=== PATIENT | male | born 1965 | race African-American/Black ===

== ENCOUNTER 2020-02-20 14:13 | Emergency (ER) | payer MEDICARE, MEDICAID ==
[~2020-02-20] VITALS: Ht 183.5 cm; Wt 102.1 kg
--- NOTE | 2020-02-20 14:15 | NUR ---
ED Nurse Note: Patient was BIBA from home due to gen wakness, and abnormal labs. Per manager social responsibility BS was criticaly high. Patient presented calm, and cooperative, has even non labored breathing, AAO x4, BS critically high at bed side, other VSS at this time.
--- NOTE | 2020-02-20 14:18 | NUR ---
ED Nurse Note: IV line was established on left forearm, blood and urine collected sent to lab
[2020-02-20 14:20] VITALS: BP 136/74
--- NOTE | 2020-02-20 14:40 | Emergency Room Report ---
History of Present Illness General Chief Complaint: Abnormal Labs Present Illness HPI 55-year-old male with history of type 2 diabetes not on insulin, remote history of kidney transplant approximately 20 years ago on tacrolimus, here with generalized weakness. Patient says that over the past several days to weeks he has been feeling generally weak. He does not check his blood glucose at home. When paramedics arrived the patient's blood glucose reading was "high." Patient says he only feels generally weak. Denies any pain. Denies fevers, chills, chest pain, palpitations, shortness of breath, cough, back pain, abdominal pain, nausea, vomiting, diarrhea, dysuria. No known sick contacts. Allergies: Coded Allergies: SULFA (SULFONAMIDE ANTIBIOTICS) (Unverified Allergy, Unknown, 02/20/20) COVID-19 Screening Contact w/high risk pt: No Experienced COVID-19 symptoms?: No COVID-19 Testing performed SPANISH MEDICAL INTERPRETER: No Nursing Documentation-PMH Hx Hypertension: Yes Hx Diabetes: Yes Review of Systems All Other Systems: negative except mentioned in HPI Physical Exam Vital Signs Date Time Temp Pulse Resp B/P (MAP) Pulse Ox O2 Delivery O2 Flow Rate FiO2 02/20/20 14:07 97.9 83 20 136/74 (94) 98 Room Air Sp02 EP Interpretation: reviewed, normal General Appearance: no apparent distress, alert, GCS 15, non-toxic Head: normocephalic, atraumatic Eyes: bilateral eye normal inspection, bilateral eye PERRL ENT: hearing grossly normal, normal pharynx, no angioedema, normal voice Neck: full range of motion, supple/symm/no masses Respiratory: chest non-tender, lungs clear, normal breath sounds, speaking full sentences Cardiovascular #1: regular rate, rhythm, no edema Cardiovascular #2: 2+ carotid (R), 2+ carotid (L), 2+ radial (R), 2+ radial (L), 2+ dorsalis pedis (R), 2+ dorsalis pedis (L) Gastrointestinal: normal bowel sounds, non tender, soft, non-distended, no guarding, no rebound Rectal: deferred Genitourinary: normal inspection, no CVA tenderness Musculoskeletal: back normal, normal range of motion, calf tenderness, gait/station normal, non-tender Neurologic: alert, motor strength/tone normal, oriented x3, sensory intact, responsive, speech normal Psychiatric: judgement/insight normal, memory normal, mood/affect normal, no suicidal/homicidal ideation Reflexes: 3+ bicep (R), 3+ bicep (L), 3+ tricep (R), 3+ tricep (L), 3+ knee (R), 3+ knee (L) Lymphatic: no adenopathy Medical Decision Making Diagnostic Impression: Primary Impression: Hyperosmolar hyperglycemic state (HHS) Additional Impressions: Hyperglycemia UTI (urinary tract infection) Noncompliance with medication regimen ER Course EKG: NSR, no ischemia, intervals WNL. No ectopy Rhythm strip: patient monitored for arrhythmias - no malignant dysrhythmias, runs of PVCs, nor pauses noted Total critical care time: Approximately 45 minutes Due to a high probability of clinically significant, life threatening deterioration, the patient required the highest level of preparedness to intervene emergently and I personally spent this critical care time directly and personally managing the patient. This critical care time included obtaining a history, examining the patient, pulse oximetry, ordering and reviewing studies, ordering treatments, evaluating response to treatment and updating management plan as needed, frequent reassessment and discussion with other providers as well as arranging for ultimate disposition. This critical to care time was per formed to assess and manage the high probability of life-threatening deterioration that could result in multiorgan failure. This critical care time is separate from the separately billable procedures and treating other patients. 55-year-old male here with generalized weakness. Patient has a history of renal transplant on tacrolimus. He has type 2 diabetes and is noncompliant with his antihyperglycemic medications. Has not checked his blood sugar in several weeks. Patient's blood glucose was 740 on arrival to the emergency department. He was merely started on IV fluids. Blood work was also positive for a small amount of acetone, and patient however did not have an anion gap. He was started on an insulin drip. Repeat blood glucose 1 hour after the insulin drip was started was 543. Patient was also hyponatremic at 124 and hypochloremic at 91. He has 1 working kidney and creatinine was elevated at 3.2. However the patient says this is his normal range. I spoke with Dr. Rosario at [facility] who agreed that the patient is stable for transfer if he is able to come off of the insulin drip. Update 20 4 PM: Repeat blood glucose was 324. The patient was taken off the insulin drip. He was deemed appropriate for transfer to [facility]. Transferred in stable condition. Last Vital Signs Date Time Temp Pulse Resp B/P (MAP) Pulse Ox O2 Delivery O2 Flow Rate FiO2 02/20/20 14:07 97.9 83 20 136/74 (94) 98 Room Air Sandeep Matthew M.D. Feb 20, 2020 14:40
[2020-02-20 14:50] LABS: APPEARANCE,URINE CLEAR; BILIRUBIN, URINE NEGATIVE (NEGATIVE); COLOR,URINE PALE YELLOW; EOSINOPHILS % (AUTO) 1.2 % (0.0-3.0); GLUCOSE, URINE (UA) 4+ (NEGATIVE); HEMATOCRIT 36.7 % (42.0-52.0); KETONES,URINE 2+ (NEGATIVE); LEUKOCYTE ESTERASE ,URINE 1+ (NEGATIVE); LYMPHOCYTES % (AUTO) 21.3 % (20.0-45.0); MEAN CORPUSCULAR VOLUME 79 FL (80-99); MONOCYTES % (AUTO) 7.6 % (1.0-10.0); NEUTROPHILS % (AUTO) 67.9 % (45.0-75.0); NITRITE,URINE NEGATIVE (NEGATIVE); PH,URINE 5 (4.5-8.0); PLATELET COUNT 224 K/UL (150-450); PROTEIN,URINE 2+ (NEGATIVE); RED BLOOD COUNT 4.66 M/UL (4.70-6.10); RED CELL DISTRIBUTION WIDTH 12.2 % (11.6-14.8); UROBILINOGEN,URINE NORMAL MG/DL (0.0-1.0); WHITE BLOOD COUNT 7.1 K/UL (4.8-10.8)
[2020-02-20 15:11] LABS: ALANINE AMINOTRANSFERASE 21 U/L (12-78); ALBUMIN 3.2 G/DL (3.4-5.0); ALBUMIN/GLOBULIN RATIO 0.7 (1.0-2.7); ALKALINE PHOSPHATASE 130 U/L (46-116); ANION GAP 12 mmol/L (5-15); ASPARTATE AMINO TRANSFERASE 14 U/L (15-37); BILIRUBIN,TOTAL 0.9 MG/DL (0.2-1.0); BLOOD UREA NITROGEN 52 mg/dL (7-18); CALCIUM 8.8 MG/DL (8.5-10.1); CARBON DIOXIDE 21 MMOL/L (21-32); CHLORIDE 91 MMOL/L (98-107); CREATININE 3.2 MG/DL (0.55-1.30); POTASSIUM 4.8 MMOL/L (3.5-5.1); SODIUM 124 MMOL/L (136-145)
--- NOTE | 2020-02-20 15:14 | Diagnostic Imaging Report ---
. Indication: Shortness of breath Technique: XRAY Chest 1v Comparison: None Findings: Heart size and mediastinal contours are within normal limits for AP technique. There is no focal airspace consolidation, pneumothorax or pleural effusion. Osseous structures demonstrate no acute abnormality. Impression: No radiographic evidence of acute cardiopulmonary disease.
[2020-02-20] MEDS ORDERED: cefTRIAXone 1 GM in NS 55 ML IVPB ONE (15:15)
[2020-02-20] MEDS ORDERED: Insulin Reg 100 units Premix 100 ML IV SCH (15:30)
[2020-02-20] MEDS ORDERED: [UNRECOGNIZED DRUG - OTHER] IVPB SCH (15:45)
[2020-02-20] MEDS ORDERED: INSULIN REG IVPB SCH (15:45)
--- NOTE | 2020-02-20 15:45 | NUR ---
ED Nurse Note: Damion Matthew Insulin drip was started at rate 10units/10mL/hr. Patient's BS 745
--- NOTE | 2020-02-20 17:21 | NUR ---
ED Nurse Note: Insulin drip was stoped, patient's BS 324
[2020-02-20 17:25] VITALS: BP 140/78
--- NOTE | 2020-02-20 19:08 | NUR ---
HAND-OFF: Report given to Timbo Riley RN.
[2020-02-20 19:10] VITALS: BP 137/77
--- NOTE | 2020-02-20 19:10 | NUR ---
ED Nurse Note: received report from Karen NAVARRO. Pt vss, [place], aaox4, on no experience
[2020-02-20] MEDS ORDERED: Morphine Sulfate 4mg/ml Inj (IV USE ONLY) IVP ONE (21:30)
--- NOTE | 2020-02-20 23:28 | NUR ---
ED Nurse Note: gave report to Jamison barlow [place] and Lauren RN with [facility]
[2020-02-20 23:29] VITALS: BP 152/88
[2020-02-20 23:30] VITALS: BP 152/88
--- NOTE | 2020-02-20 23:30 | NUR ---
TRANSFER TO [facility] Patient transferred to [facility] via [facility] as ordered, per dr Negron. Report given to Jamison NAVARRO. Belongings sent with patient
--- NOTE | 2020-02-21 12:09 | Cardiology Report ---
APPROVED REPORT EKG Measurement Heart [id number] DC [id number] <Conclusion> Normal sinus rhythm Normal ECG
== END 2020-02-20 23:30 | disposition short-term general hospital (02) ==
LOC: EDBD 14:13 → EMR 15:26 → EDBEDREQSVC 19:01 → EMR 23:30
DX: E87.0 Hyperosmolality and hypernatremia (principal); E11.65 Type 2 diabetes mellitus with hyperglycemia; N39.0 Urinary tract infection, site not specified; Z91.14 Patient's other noncompliance with medication regimen; Z88.2 Allergy status to sulfonamides; Z79.4 Long term (current) use of insulin; Z94.0 Kidney transplant status; E87.8 Other disorders of electrolyte and fluid balance, not elsewhere classified
CPT/HCPCS: 36415; 71045; 80053; 81003; 82009; 82803; 83690; 83735; 84484; 85025; 87040; 93005; 96361; 96365; 96366; 96367; 96375; 99291; J0696; J2270; J7030; U0002

== ENCOUNTER 2020-03-19 12:10 | Inpatient (IN) | payer MEDICARE, MEDICAID ==
[~2020-03-19] VITALS: Ht 177.8 cm; Wt 97.1 kg
[2020-03-19 12:19] VITALS: BP 143/79
[2020-03-19] MEDS ORDERED: Aspirin Baby 81mg ORAL ONE (12:30)
[2020-03-19] MEDS ORDERED: Pantoprazole Inj IVP ONE (12:30)
[2020-03-19] MEDS ORDERED: Insulin Human Regular 100units/ml 3ml IV ONE (12:30)
--- NOTE | 2020-03-19 12:35 | Emergency Room Report ---
History of Present Illness General Chief Complaint: Chest Pain Source: Patient, Medical Record Present Illness HPI Patient is a 55-year-old male past medical history of diabetes on oral medication not insulin-dependent, status post kidney transplant at [facility], and hypertension who presents to the ER complaining of abdominal pain. Patient was brought in by EMS from home. Patient complains of epigastric pain with associated nausea and vomiting. He states that the vomitus is nonbilious nonbloody. Patient also complains of chest pain and shortness of breath which he cannot define when it started. He does not know what brings it on. He states that it is more of a chronic condition. Patient denies any fever or chills. He denies any diarrhea or constipation. Per EMS patient's blood gluc ose read high prior to arrival. Allergies: Coded Allergies: SULFA (SULFONAMIDE ANTIBIOTICS) (Unverified Allergy, Unknown, 02/20/20) SULFUR (Unverified Allergy, Unknown, 03/19/20) COVID-19 Screening Contact w/high risk pt: No Experienced COVID-19 symptoms?: No COVID-19 Testing performed SPAR FINISHER: No Patient History Reviewed Nursing Documentation: PMH: Agreed; PSxH: Agreed Nursing Documentation-PMH Past Medical History: No History, Except For Hx Hypertension: Yes Hx Diabetes: Yes Review of Systems All Other Systems: negative except mentioned in HPI Physical Exam Vital Signs Date Time Temp Pulse Resp B/P (MAP) Pulse Ox O2 Delivery O2 Flow Rate FiO2 03/19/20 12:10 98.1 106 19 143/79 (100) 98 Room Air Sp02 EP Interpretation: reviewed, normal General Appearance: no apparent distress, alert, GCS 15, non-toxic Head: normocephalic, atraumatic Eyes: bilateral eye normal inspection, bilateral eye PERRL ENT: hearing grossly normal, normal pharynx, no angioedema, normal voice Neck: full range of motion, supple/symm/no masses Respiratory: no accessory muscle use, speaking full sentences Cardiovascular #1: tachycardia Gastrointestinal: other - Epigastric tenderness to palpation with no guarding or rebound Genitourinary: no CVA tenderness Musculoskeletal: normal range of motion, no calf tenderness Neurologic: chief ophthalmic technician III-XII nml as tested, oriented x3 Psychiatric: no suicidal/homicidal ideation Skin: no rash Lymphatic: no adenopathy Procedures Critical Care Time Critical Care Time Total critical care time: Approximately 35 minutes. Due to a high probability of clinically significant, life threatening deterioration, the patient required my highest level of preparedness to intervene emergently and I personally spent this critical care time directly and personally managing the patient. This critical care time included obtaining a history; examining the patient; pulse oximetry; ordering and review of studies; arranging urgent treatment with development of a management plan; evaluation of patient's response to treatment; frequent reassessment; and, discussions with other providers.This critical care time was performed to assess and manage the high probability of imminent, life- threatening deterioration that could result in multi-organ failure. It was exclusive of separately billable procedures and treating other patients and teaching time. Please see MDM section and the rest of the note for further information on patient assessment and treatment. Medical Decision Making Diagnostic Impression: Primary Impression: Hyperglycemia Additional Impressions: Hyperosmolar hyperglycemic state (HHS) Acute renal failure Chest pain Leukocytosis Anemia Metabolic acidosis UTI (urinary tract infection) ER Course Patient hyperglycemic and has pseudohyponatremia. Patient's anion gap is normal. Patient given small fluid bolus and 8 units of IV insulin. Patient does not require drip as he is not in DKA at this time. Patient has acute renal insufficiency with creatinine of 4 and BUN of 70. Patient does have history of CHF therefore I will slowly give fluids. Patient's chest pain and shortness of breath treated with oral aspirin. Patient's D-dimer is elevated to 13. Concern for PE. Patient has acute renal insufficiency and therefore cannot obtain a CT with contrast. VQ scan has been ordered and is pending. I have explained this to the admitting doctor. Patient also has UTI and has been pancultured and started on broad-spectrum antibiotics. Patient CT abdomen pelvis is pending. I will have the oncoming ER physician follow-up on it and relay any acute findings to the admitting physician. Oncoming ER physician is Dr. Carlos. Laboratory Tests Test 03/19/20 12:31 03/19/20 12:35 03/19/20 12:55 White Blood Count 14.9 K/UL (4.8-10.8) H Red Blood Count 3.75 M/UL (4.70-6.10) L Hemoglobin 9.7 G/DL (14.2-18.0) L Hematocrit 31.8 % (42.0-52.0) L Mean Corpuscular Volume 85 FL (80-99) Mean Corpuscular Hemoglobin 25.8 PG (27.0-31.0) L Mean Corpuscular Hemoglobin Concent 30.4 G/DL (32.0-36.0) L Red Cell Distribution Width 13.4 % (11.6-14.8) Platelet Count 223 K/UL (150-450) Mean Platelet Volume 6.2 FL (6.5-10.1) L Neutrophils (%) (Auto) 79.3 % (45.0-75.0) H Lymphocytes (%) (Auto) 8.7 % (20.0-45.0) L Monocytes (%) (Auto) 11.1 % (1.0-10.0) H Eosinophils (%) (Auto) 0.2 % (0.0-3.0) Basophils (%) (Auto) 0.8 % (0.0-2.0) Prothrombin Time 11.4 SEC (9.30-11.50) Prothrombin Time INR 1.0 (0.9-1.1) Activated Partial Thromboplast Time 28 SEC (23-33) D-Dimer 12.62 mg/L FEU (0.00-0.49) H Sodium Level 125 MMOL/L (136-145) L Potassium Level 4.3 MMOL/L (3.5-5.1) Chloride Level 93 MMOL/L (98-107) L Carbon Dioxide Level 19 MMOL/L (21-32) L Anion Gap 13 mmol/L (5-15) Blood Urea Nitrogen 70 mg/dL (7-18) H Creatinine 4.1 MG/DL (0.55-1.30) H Estimated Glomerular Filtration Rate 18.3 mL/min (>60) Glucose Level 627 MG/DL (74-106) *H Lactic Acid Level 1.50 mmol/L (0.4-2.0) Calcium Level 8.5 MG/DL (8.5-10.1) Magnesium Level 2.2 MG/DL (1.8-2.4) Total Bilirubin 0.7 MG/DL (0.2-1.0) Aspartate Amino Transferase (AST) 15 U/L (15-37) Alanine Aminotransferase (ALT) 21 U/L (12-78) Alkaline Phosphatase 119 U/L (46-116) H Troponin I 0.000 ng/mL (0.000-0.056) Pro-B-Type Natriuretic Peptide 1420 pg/mL (0-125) H Total Protein 7.5 G/DL (6.4-8.2) Albumin 2.1 G/DL (3.4-5.0) L Globulin 5.4 g/dL Albumin/Globulin Ratio 0.4 (1.0-2.7) L Acetone Level Negative (NEGATIVE) Arterial Blood pH 7.361 (7.350-7.450) Arterial Blood Partial Pressure CO2 28.1 mmHg (35.0-45.0) L Arterial Blood Partial Pressure O2 87.5 mmHg (75.0-100.0) Arterial Blood HCO3 15.6 mmol/L (22.0-26.0) *L Arterial Blood Oxygen Saturation 95.9 % (95-100) Arterial Blood Base Excess -8.7 (-2-2) L Luis Test Positive Urine Color Pale yellow Urine Appearance Clear Urine pH 5 (4.5-8.0) Urine Specific [place] 1.010 (1.005-1.035) Urine Protein 2+ (NEGATIVE) H Urine Glucose (UA) 4+ (NEGATIVE) H Urine Ketones Negative (NEGATIVE) Urine Blood 2+ (NEGATIVE) H Urine Nitrite Negative (NEGATIVE) Urine Bilirubin Negative (NEGATIVE) Urine Urobilinogen Normal MG/DL (0.0-1.0) Urine Leukocyte Esterase 2+ (NEGATIVE) H Urine RBC 2-4 /HPF (0 - 0) H Urine WBC 15-20 /HPF (0 - 0) H Urine Squamous Epithelial Cells Occasional /LPF Urine Bacteria Few /HPF (NONE) Microbiology Date/Time Source Procedure Growth Status 03/19/20 12:55 Nasopharynx SARS-CoV-2 RdRp Gene Assay - Final Complete EKG Diagnostic Results Troponin ordered: Yes When was troponin ordered?: Mar 19, 2020 EKG Time: 12:07 EP Interpretation: Mary Boss MD Rate: tachycardiac - 116 bpm Rhythm: other - Sinus tachycardia ST Segments: no acute changes ASA given to the pt in ED: No Rhythm Strip Diag. Results Rhythm Strip Time: 14:19 EP Interpretation: yes - Mary Boss MD Rate: 97 bpm Rhythm: NSR, no PVC's, no ectopy Chest X-Ray Diagnostic Results Chest X-Ray Diagnostic Results : Chest X-Ray Ordered: Yes # of Views/Limited/Complete: 1 View Indication: Chest Pain EP Interpretation: Yes Interpretation: no consolidation, no effusion, no pneumothorax, no acute cardiopulmonary disease Impression: No acute disease Electronically Signed by: Mary Boss MD Last Vital Signs Date Time Temp Pulse Resp B/P (MAP) Pulse Ox O2 Delivery O2 Flow Rate FiO2 03/19/20 12:19 98.1 100 19 143/79 98 Room Air Disposition: ADMITTED INPATIENT - SDU Condition: Critical Physician Consult: DR. Sutherland Additional Instructions: Please note that this report is being documented using [employer] technology. This can lead to erroneous entry secondary to incorrect interpretation by the dictating instrument. Mary Boss M.D. Mar 19, 2020 12:35
[2020-03-19 12:50] LABS: BASOPHILS % (AUTO) 0.8 % (0.0-2.0); EOSINOPHILS % (AUTO) 0.2 % (0.0-3.0); HEMATOCRIT 31.8 % (42.0-52.0); HEMOGLOBIN 9.7 G/DL (14.2-18.0); LYMPHOCYTES % (AUTO) 8.7 % (20.0-45.0); MEAN CORPUSCULAR VOLUME 85 FL (80-99); MONOCYTES % (AUTO) 11.1 % (1.0-10.0); NEUTROPHILS % (AUTO) 79.3 % (45.0-75.0); PLATELET COUNT 223 K/UL (150-450); RED BLOOD COUNT 3.75 M/UL (4.70-6.10); RED CELL DISTRIBUTION WIDTH 13.4 % (11.6-14.8); WHITE BLOOD COUNT 14.9 K/UL (4.8-10.8)
[2020-03-19] MEDS ORDERED: Cefepime HCl 2 GM in D5W 55 ML IVPB ONE (13:00)
[2020-03-19] MEDS ORDERED: Vancomycin 1 GM in NS 275 ML IVPB ONE (13:00)
[2020-03-19 13:16] LABS: APPEARANCE,URINE CLEAR; BILIRUBIN, URINE NEGATIVE (NEGATIVE); COLOR,URINE PALE YELLOW; GLUCOSE, URINE (UA) 4+ (NEGATIVE); KETONES,URINE NEGATIVE (NEGATIVE); LEUKOCYTE ESTERASE ,URINE 2+ (NEGATIVE); NITRITE,URINE NEGATIVE (NEGATIVE); PH,URINE 5 (4.5-8.0); PROTEIN,URINE 2+ (NEGATIVE); UROBILINOGEN,URINE NORMAL MG/DL (0.0-1.0)
[2020-03-19 13:21] LABS: ALANINE AMINOTRANSFERASE 21 U/L (12-78); ALBUMIN 2.1 G/DL (3.4-5.0); ALBUMIN/GLOBULIN RATIO 0.4 (1.0-2.7); ALKALINE PHOSPHATASE 119 U/L (46-116); ANION GAP 13 mmol/L (5-15); ASPARTATE AMINO TRANSFERASE 15 U/L (15-37); BILIRUBIN,TOTAL 0.7 MG/DL (0.2-1.0); BLOOD UREA NITROGEN 70 mg/dL (7-18); CALCIUM 8.5 MG/DL (8.5-10.1); CARBON DIOXIDE 19 MMOL/L (21-32); CHLORIDE 93 MMOL/L (98-107); CREATININE 4.1 MG/DL (0.55-1.30); POTASSIUM 4.3 MMOL/L (3.5-5.1); SODIUM 125 MMOL/L (136-145)
--- NOTE | 2020-03-19 14:05 | Diagnostic Imaging Report ---
Indication: Reason For Exam: PAIN Technique: Single AP view of the chest. Comparison: Chest radiograph dated 02/20/2020 Findings: Cardiomediastinal silhouette is unchanged in appearance. There are diffuse right greater than left bilateral interstitial opacities, which are not seen on prior examination. No pneumothorax. No pleural effusion. No acute osseous abnormality. IMPRESSION: Bilateral interstitial opacities, the differential for which includes atelectasis in the setting of infectious/inflammatory airways disease or pneumonia, including atypical/viral etiologies.
--- NOTE | 2020-03-19 14:35 | Diagnostic Imaging Report ---
EXAM: CT Abdomen and Pelvis Without Intravenous Contrast CLINICAL HISTORY: PAIN TECHNIQUE: Axial computed tomography images of the abdomen and pelvis without intravenous contrast. Sagittal and coronal reformatted images were created and reviewed. CTDI is 9.50 mGy and DLP is 559.70 mGy-cm. One or more of the following dose reduction techniques were used: automated exposure control, adjustment of the mA and/or kV according to patient size, use of iterative reconstruction technique. COMPARISON: No relevant prior studies available. FINDINGS: Lung bases: Incidental note of 2.8 x 2.6 x 1.9 cm thin-walled cyst versus bleb in the dependent right lung base. Mild dependent atelectasis in the right lung base. Heart: Coronary artery calcifications. Mediastinum: Mild circumferential wall thickening in the distal esophagus. ABDOMEN: Liver: Unremarkable. Gallbladder and bile ducts: Unremarkable. No calcified stones. No ductal dilation. Pancreas: Unremarkable. No ductal dilation. Spleen: Unremarkable. No splenomegaly. Adrenals: Unremarkable. No mass. Kidneys and ureters: Transplant kidney in the right pelvis, without hydronephrosis or calcified stones. 2.9 x 2.3 x 2.0 cm nodular soft tissue density along the lateral margin of the renal transplant (axial series image 126, coronal series image 34). The [place] kidneys are atrophic, with subcentimeter nonobstructive stones and scattered small cortical cysts. Stomach and bowel: Unremarkable. No obstruction. No mucosal thickening. PELVIS: Appendix: No findings to suggest acute appendicitis. Bladder: Unremarkable. No stones. Reproductive: Unremarkable as visualized. ABDOMEN and PELVIS: Intraperitoneal space: Trace free fluid in the pelvis. No free air. Bones/joints: Incidental note of grade 1 anterolisthesis of L4 relative to L5 with 4 mm offset. No associated spondylolysis. No acute fracture. No dislocation. Soft tissues: Midline fat-containing ventral abdominal wall hernia just above the umbilicus, with hernia sac measuring 4.8 x 4.4 x 4.4 cm. Vasculature: Atherosclerosis throughout the abdominal aorta and its proximal branches. No abdominal aortic aneurysm. Lymph nodes: Unremarkable. No enlarged lymph nodes. IMPRESSION: 1. Mild circumferential wall thickening in the distal esophagus. This raises possibility of esophagitis and cannot exclude esophageal malignancy. If there is continued clinical concern, may consider further evaluation with upper endoscopy. 2. Transplant kidney in the right pelvis, without hydronephrosis or calcified stones. 3. 2.9 x 2.3 x 2.0 cm nodular soft tissue density along the lateral margin of the renal transplant (axial series image 126, coronal series image 34). This is indeterminate and may represent an exophytic renal cyst or solid lesion. Recommend nonemergent follow-up evaluation with ultrasound of the transplant kidney. 4. The [place] kidneys are atrophic, with subcentimeter nonobstructive stones and scattered small cortical cysts. 5. Trace free fluid in the pelvis. 6. Incidental note of 2.8 x 2.6 x 1.9 cm thin-walled cyst versus bleb in the dependent right lung base. 7. Mild dependent atelectasis in the right lung base. 8. Coronary artery calcifications. 9. Midline fat-containing ventral abdominal wall hernia just above the umbilicus, with hernia sac measuring 4.8 x 4.4 x 4.4 cm. 10. Incidental note of grade 1 anterolisthesis of L4 relative to L5 with 4 mm offset. No associated spondylolysis.
--- NOTE | 2020-03-19 16:54 | Cardiac Electrophysiology PN ---
Subjective Subjective [id number] Objective Last 24 Hour Vital Signs Date Time Temp Pulse Resp B/P (MAP) Pulse Ox O2 Delivery O2 Flow Rate FiO2 03/19/20 12:19 98.1 100 19 143/79 98 Room Air 03/19/20 12:19 106 19 Room Air 03/19/20 12:10 98.1 106 19 143/79 (100) 98 Room Air Laboratory Tests Test 03/19/20 12:31 03/19/20 12:35 03/19/20 12:55 03/19/20 14:24 White Blood Count 14.9 K/UL (4.8-10.8) H Red Blood Count 3.75 M/UL (4.70-6.10) L Hemoglobin 9.7 G/DL (14.2-18.0) L Hematocrit 31.8 % (42.0-52.0) L Mean Corpuscular Volume 85 FL (80-99) Mean Corpuscular Hemoglobin 25.8 PG (27.0-31.0) L Mean Corpuscular Hemoglobin Concent 30.4 G/DL (32.0-36.0) L Red Cell Distribution Width 13.4 % (11.6-14.8) Platelet Count 223 K/UL (150-450) Mean Platelet Volume 6.2 FL (6.5-10.1) L Neutrophils (%) (Auto) 79.3 % (45.0-75.0) H Lymphocytes (%) (Auto) 8.7 % (20.0-45.0) L Monocytes (%) (Auto) 11.1 % (1.0-10.0) H Eosinophils (%) (Auto) 0.2 % (0.0-3.0) Basophils (%) (Auto) 0.8 % (0.0-2.0) Prothrombin Time 11.4 SEC (9.30-11.50) Prothromb Time International Ratio 1.0 (0.9-1.1) Activated Partial Thromboplast Time 28 SEC (23-33) D-Dimer 12.62 mg/L FEU (0.00-0.49) H Sodium Level 125 MMOL/L (136-145) L Potassium Level 4.3 MMOL/L (3.5-5.1) Chloride Level 93 MMOL/L (98-107) L Carbon Dioxide Level 19 MMOL/L (21-32) L Anion Gap 13 mmol/L (5-15) Blood Urea Nitrogen 70 mg/dL (7-18) H Creatinine 4.1 MG/DL (0.55-1.30) H Estimat Glomerular Filtration Rate 18.3 mL/min (>60) Glucose Level 627 MG/DL (74-106) *H Lactic Acid Level 1.50 mmol/L (0.4-2.0) Calcium Level 8.5 MG/DL (8.5-10.1) Magnesium Level 2.2 MG/DL (1.8-2.4) Total Bilirubin 0.7 MG/DL (0.2-1.0) Aspartate Amino Transf (AST/SGOT) 15 U/L (15-37) Alanine Aminotransferase (ALT/SGPT) 21 U/L (12-78) Alkaline Phosphatase 119 U/L (46-116) H Troponin I 0.000 ng/mL (0.000-0.056) Pro-B-Type Natriuretic Peptide 1420 pg/mL (0-125) H Total Protein 7.5 G/DL (6.4-8.2) Albumin 2.1 G/DL (3.4-5.0) L Globulin 5.4 g/dL Albumin/Globulin Ratio 0.4 (1.0-2.7) L Acetone Level Negative (NEGATIVE) Arterial Blood pH 7.361 (7.350-7.450) Arterial Blood Partial Pressure CO2 28.1 mmHg (35.0-45.0) L Arterial Blood Partial Pressure O2 87.5 mmHg (75.0-100.0) Arterial Blood HCO3 15.6 mmol/L (22.0-26.0) *L Arterial Blood Oxygen Saturation 95.9 % (95-100) Arterial Blood Base Excess -8.7 (-2-2) L Luis Test Positive Urine Color Pale yellow Urine Appearance Clear Urine pH 5 (4.5-8.0) Urine Specific [place] 1.010 (1.005-1.035) Urine Protein 2+ (NEGATIVE) H Urine Glucose (UA) 4+ (NEGATIVE) H Urine Ketones Negative (NEGATIVE) Urine Blood 2+ (NEGATIVE) H Urine Nitrite Negative (NEGATIVE) Urine Bilirubin Negative (NEGATIVE) Urine Urobilinogen Normal MG/DL (0.0-1.0) Urine Leukocyte Esterase 2+ (NEGATIVE) H Urine RBC 2-4 /HPF (0 - 0) H Urine WBC 15-20 /HPF (0 - 0) H Urine Squamous Epithelial Cells Occasional /LPF Urine Bacteria Few /HPF (NONE) POC Whole Blood Glucose Pending Test 03/19/20 15:30 POC Whole Blood Glucose 367 MG/DL (74-106) H Microbiology Date/Time Source Procedure Growth Status 03/19/20 12:55 Nasopharynx SARS-CoV-2 RdRp Gene Assay - Final Complete Ivan Martinez MD Mar 19, 2020 16:54
--- NOTE | 2020-03-19 16:57 | History and Physical ---
History of Present Illness General Date patient seen: Mar 19, 2020 Reason for Hospitalization: Chest Pain Present Illness HPI Oliver Hinton is a 55 yo M with PMH of Kidney transplant, HTN, DM, Hx of DVT who presents with chest pain, abdominal pain, N/V and found to have marked hypergl ycemia. He reports symptoms began 2-3 days ago, reports poor PO intake. Denies insulin use. Denies fever, chills, cough, sick contacts, contact with COVID-19 patients. Has had profound hyperglycemia before and is unable to check glucose at home. Denies hematemesis. PMH: Kidney transplant, HTN, DM, Hx of DVT PSH: Kidney transplant at [facility] in 1995 FH: patient does not know SH: denies smoking, drinking, or recreational drug use Allergies: Coded Allergies: SULFA (SULFONAMIDE ANTIBIOTICS) (Unverified Allergy, Unknown, 02/20/20) SULFUR (Unverified Allergy, Unknown, 03/19/20) COVID-19 Screening Contact w/high risk pt: No Recent Travel to affected area: No Experienced COVID-19 symptoms?: No Medication History Scheduled Labetalol HCl (Labetalol HCl), 100 MG ORAL EVERY 12 HOURS, (Reported) Mycophenolate Mofetil (Cellcept), Unknown Dose ORAL EVERY 12 HOURS, (Reported) Miscellaneous Medications Linagliptin (Tradjenta), Unknown Dose PO, (Reported) Sirolimus (Rapamune), Unknown Dose PO, (Reported) Tacrolimus (Tacrolimus), Unknown Dose TP, (Reported) Patient History History Provided By: Patient Healthcare decision maker N Resuscitation status Advanced Directive on File Review of Systems Constitutional: Denies: chills, fever Eye: Denies: eye pain, nose pain ENT: Denies: ear pain, throat pain Respiratory: Denies: cough, orthopnea Cardiovascular: Denies: edema Gastrointestinal: Denies: melena, hematemesis Musculoskeletal: Denies: joint pain, joint swelling Skin: Denies: rash, dryness Psychiatric: Denies: anxiety, hallucinations Neurological: Denies: numbness, paresthesia Endocrine: Denies: intolerance to temperature Hematologic/Lymphatic: Denies: easy bleeding Physical Exam General Appearance: WD/WN, no apparent distress, alert HEENT: normocephalic, atraumatic, anicteric, mucous membranes moist Neck: non-tender, normal alignment, supple, normal inspection Respiratory/Chest: chest wall non-tender, lungs clear, normal breath sounds, no respiratory distress Cardiovascular/Chest: normal rate, regular rhythm, no gallop/murmur Abdomen: normal bowel sounds, non tender, soft, no organomegaly Extremities: normal range of motion, non-tender, normal inspection, no calf tenderness Skin Exam: normal pigmentation, warm/dry 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: 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 grossly normal, alert, oriented x 3, normal mood/affect Musculoskeletal: normal muscle bulk Last 24 Hour Vital Signs Date Time Temp Pulse Resp B/P (MAP) Pulse Ox O2 Delivery O2 Flow Rate FiO2 03/19/20 12:19 98.1 100 19 143/79 98 Room Air 03/19/20 12:19 106 19 Room Air 03/19/20 12:10 98.1 106 19 143/79 (100) 98 Room Air Laboratory Tests Test 03/19/20 12:31 03/19/20 12:35 03/19/20 12:55 03/19/20 14:24 White Blood Count 14.9 K/UL (4.8-10.8) H Red Blood Count 3.75 M/UL (4.70-6.10) L Hemoglobin 9.7 G/DL (14.2-18.0) L Hematocrit 31.8 % (42.0-52.0) L Mean Corpuscular Volume 85 FL (80-99) Mean Corpuscular Hemoglobin 25.8 PG (27.0-31.0) L Mean Corpuscular Hemoglobin Concent 30.4 G/DL (32.0-36.0) L Red Cell Distribution Width 13.4 % (11.6-14.8) Platelet Count 223 K/UL (150-450) Mean Platelet Volume 6.2 FL (6.5-10.1) L Neutrophils (%) (Auto) 79.3 % (45.0-75.0) H Lymphocytes (%) (Auto) 8.7 % (20.0-45.0) L Monocytes (%) (Auto) 11.1 % (1.0-10.0) H Eosinophils (%) (Auto) 0.2 % (0.0-3.0) Basophils (%) (Auto) 0.8 % (0.0-2.0) Prothrombin Time 11.4 SEC (9.30-11.50) Prothromb Time International Ratio 1.0 (0.9-1.1) Activated Partial Thromboplast Time 28 SEC (23-33) D-Dimer 12.62 mg/L FEU (0.00-0.49) H Sodium Level 125 MMOL/L (136-145) L Potassium Level 4.3 MMOL/L (3.5-5.1) Chloride Level 93 MMOL/L (98-107) L Carbon Dioxide Level 19 MMOL/L (21-32) L Anion Gap 13 mmol/L (5-15) Blood Urea Nitrogen 70 mg/dL (7-18) H Creatinine 4.1 MG/DL (0.55-1.30) H Estimat Glomerular Filtration Rate 18.3 mL/min (>60) Glucose Level 627 MG/DL (74-106) *H Lactic Acid Level 1.50 mmol/L (0.4-2.0) Calcium Level 8.5 MG/DL (8.5-10.1) Magnesium Level 2.2 MG/DL (1.8-2.4) Total Bilirubin 0.7 MG/DL (0.2-1.0) Aspartate Amino Transf (AST/SGOT) 15 U/L (15-37) Alanine Aminotransferase (ALT/SGPT) 21 U/L (12-78) Alkaline Phosphatase 119 U/L (46-116) H Troponin I 0.000 ng/mL (0.000-0.056) Pro-B-Type Natriuretic Peptide 1420 pg/mL (0-125) H Total Protein 7.5 G/DL (6.4-8.2) Albumin 2.1 G/DL (3.4-5.0) L Globulin 5.4 g/dL Albumin/Globulin Ratio 0.4 (1.0-2.7) L Acetone Level Negative (NEGATIVE) Arterial Blood pH 7.361 (7.350-7.450) Arterial Blood Partial Pressure CO2 28.1 mmHg (35.0-45.0) L Arterial Blood Partial Pressure O2 87.5 mmHg (75.0-100.0) Arterial Blood HCO3 15.6 mmol/L (22.0-26.0) *L Arterial Blood Oxygen Saturation 95.9 % (95-100) Arterial Blood Base Excess -8.7 (-2-2) L Luis Test Positive Urine Color Pale yellow Urine Appearance Clear Urine pH 5 (4.5-8.0) Urine Specific [place] 1.010 (1.005-1.035) Urine Protein 2+ (NEGATIVE) H Urine Glucose (UA) 4+ (NEGATIVE) H Urine Ketones Negative (NEGATIVE) Urine Blood 2+ (NEGATIVE) H Urine Nitrite Negative (NEGATIVE) Urine Bilirubin Negative (NEGATIVE) Urine Urobilinogen Normal MG/DL (0.0-1.0) Urine Leukocyte Esterase 2+ (NEGATIVE) H Urine RBC 2-4 /HPF (0 - 0) H Urine WBC 15-20 /HPF (0 - 0) H Urine Squamous Epithelial Cells Occasional /LPF Urine Bacteria Few /HPF (NONE) POC Whole Blood Glucose Pending Test 03/19/20 15:30 POC Whole Blood Glucose 367 MG/DL (74-106) H Microbiology Date/Time Source Procedure Growth Status 03/19/20 12:55 Nasopharynx SARS-CoV-2 RdRp Gene Assay - Final Complete Height (Feet): 5 Height (Inches): 10.00 Weight (Pounds): 180 Assessment/Plan Assessment/Plan: #Hyperglycemia/HHS #Diabetes Mellitus #Nausea/Vomiting #Abdominal pain No anion gap. pH slightly low. Glucose >600. Patient takes Tradjenta at home. - Sliding scale insulin - IVF - Trend BMP - Endocrinology consult alize Martinez appreciated #Chest pain #SOB Multiple CAD risk factors present. HEART score 4, moderate risk, warranting admission for ACS rule out. Initial troponin negative. However, EKG with TWI in lateral leads. D-dimer elevated, V/Q scan with low probability of PE. - EKG/troponin for ACS rule out - Cardiology consult Dr. Martinez recs appreciated #Hyponatremia Likely pseudohyponatremia from severe hyperglycemia. - IVF - Trend BMP #Sepsis #UTI 2/4 SIRS criteria (WBC count, HR) plus suspected UTI based on UA. - f/u micro - Cefepime/Vancomycin - ID consult Dr. Murphy recs appreciated #Acute renal failure #History of renal transplant Likely due to severe dehydration in setting of HHS. Cr 4.1 on admission. - IVF - Trend BMP - Nephro consult Dr. Gomez recs appreciated #Hx of DVT Low suspicion of DVT at this time. No calf tenderness or swelling. - Heparin ppx/SCDs Diet: low carb DVT ppx: heparin subQ Code status: Full I spent 70 minutes on this patient's case, and 37 minutes was dedicated to counseling and/or care coordination with RN, correctional case records supervisor, consulting MD team I spent an additional 39 minutes on review of medical records including prior outside hospital records, consult notes, progress notes, procedures, imaging, labs, hemodynamics, and other clinical documentation. Time of note may not reflect time patient was seen. Johnie Kelley M.D. Mar 19, 2020 16:57
[2020-03-19 17:49] VITALS: BP 146/74
--- NOTE | 2020-03-19 18:23 | Diagnostic Imaging Report ---
EXAM: NM Lung Perfusion and Ventilation Scan CLINICAL HISTORY: SOB TECHNIQUE: Nuclear Medicine ventilation and perfusion images of the lungs were obtained in multiple projections following radiopharmaceutical inhalation followed by injection of Tc99m MAA. COMPARISON: Correlation is made to chest radiograph on 03/19/2020 FINDINGS: Ventilation: Slightly heterogeneous ventilation. Perfusion: Slightly heterogeneous perfusion. IMPRESSION: Slightly heterogeneous ventilation and perfusion, suggestive of low probability for pulmonary embolus.
--- NOTE | 2020-03-19 19:00 | Consultation ---
DATE OF CONSULTATION: 03/19/2020 CARDIOLOGY CONSULTATION CONSULTING PHYSICIAN: Ivan Martinez MD REFERRING PHYSICIAN: Trent Sutherland MD REASON FOR CONSULTATION: Shortness of breath and tachycardia. HISTORY OF PRESENT ILLNESS: Patient is a 55-year-old gentleman with history of hypertension, diabetes on oral medication as well as history of kidney transplant at [facility] who presented to the emergency room complaining of abdominal pain. Patient was evaluated by paramedics and was complaining of nausea, vomiting, and epigastric pain. The vomitus was nonbilious and nonbloody. Patient also complaining of chest pain and shortness of breath, but cannot define when it was started even though this has been a chronic condition. His blood glucose in the emergency room was more than 600 with blood pressure of 143/79 and pulse of 106. Patient was also severely hyponatremic with sodium of 125 and also metabolic acidosis and urinary tract infection. Patient's D-dimer was elevated at 213 with a concern for pulmonary embolism. In view of patient's acute renal failure and not able to get a CT with contrast, a V/Q scan was ordered and at this time is pending. REVIEW OF SYSTEMS: Negative other than what was mentioned in history of present illness. PAST MEDICAL HISTORY: As mentioned above. FAMILY HISTORY: Noncontributory. SOCIAL HISTORY: Denies drinking or using drugs. PHYSICAL EXAMINATION: VITAL SIGNS: Show blood pressure 143/79, pulse is 106, respirations 18, temperature 98.1. HEAD AND NECK: Shows no JVD. LUNGS: Decreased breath sounds. CARDIOVASCULAR: Shows regular S1 and S2 with no gallop. ABDOMEN: Soft. EXTREMITIES: No pitting edema. LABORATORY DATA: Labs show white count of 14.9, hemoglobin 9.7, hematocrit 31.8, and platelet count 223. Sodium is 125, potassium 4.3, BUN of 70, creatinine of 4.1, glucose of 627. Troponin is negative. ASSESSMENT AND PLAN: 1. Shortness of breath. EKG shows lateral T-wave inversion. We will completely rule out WI protocol especially in this patient with multiple risk factors for coronary artery disease including hypertension, uncontrolled diabetes with glucose of more than 620. Avoid beta-rowan in view of patient's uncontrolled diabetes. Patient's troponin is negative. 2. Shortness of breath. The patient's D-dimer is elevated. The patient requiring ventilation/perfusion scan. 3. Hyponatremia, likely due to the patient's blood glucose of 620. 4. Uncontrolled diabetes. 5. Acute renal failure. BUN of 70 and creatinine of 4.1. Thank you very much for allowing me to participate in the care of this patient. Please do not hesitate to contact me for any questions regarding my evaluation. Ivan Martinez M.D. DR: DANIELLE JOB#: [id number] CC:
--- NOTE | 2020-03-19 19:42 | Infectious Diseases Prog Note ---
Assessment/Plan Assessment/Plan Full consult is dictated: A) 1) uti, ? sepsis, leukocytosis, atelectasis > pna (CT c/w atelectasis), covid-19 testing negative 2) hyperglycemia, dm, htn 3) ARF 4) renal transplant 5) allergies - nkda P) 1) cefepime, vancomycin x 1 given 2) f/u on cultures 3) will f/u 4) thank you Subjective Allergies: Coded Allergies: SULFA (SULFONAMIDE ANTIBIOTICS) (Unverified Allergy, Unknown, 02/20/20) SULFUR (Unverified Allergy, Unknown, 03/19/20) Objective Last 24 Hour Vital Signs Date Time Temp Pulse Resp B/P (MAP) Pulse Ox O2 Delivery O2 Flow Rate FiO2 03/19/20 17:49 97.9 100 20 146/74 (98) 98 03/19/20 17:43 98.1 100 19 143/79 98 Room Air 03/19/20 12:19 98.1 100 19 143/79 98 Room Air 03/19/20 12:19 106 19 Room Air 03/19/20 12:10 98.1 106 19 143/79 (100) 98 Room Air Height (Feet): 5 Height (Inches): 10.00 Weight (Pounds): 180 Microbiology Date/Time Source Procedure Growth Status 03/19/20 12:55 Nasopharynx SARS-CoV-2 RdRp Gene Assay - Final Complete Laboratory Tests Test 03/19/20 12:31 03/19/20 12:35 03/19/20 12:55 03/19/20 14:24 White Blood Count 14.9 K/UL (4.8-10.8) H Red Blood Count 3.75 M/UL (4.70-6.10) L Hemoglobin 9.7 G/DL (14.2-18.0) L Hematocrit 31.8 % (42.0-52.0) L Mean Corpuscular Volume 85 FL (80-99) Mean Corpuscular Hemoglobin 25.8 PG (27.0-31.0) L Mean Corpuscular Hemoglobin Concent 30.4 G/DL (32.0-36.0) L Red Cell Distribution Width 13.4 % (11.6-14.8) Platelet Count 223 K/UL (150-450) Mean Platelet Volume 6.2 FL (6.5-10.1) L Neutrophils (%) (Auto) 79.3 % (45.0-75.0) H Lymphocytes (%) (Auto) 8.7 % (20.0-45.0) L Monocytes (%) (Auto) 11.1 % (1.0-10.0) H Eosinophils (%) (Auto) 0.2 % (0.0-3.0) Basophils (%) (Auto) 0.8 % (0.0-2.0) Prothrombin Time 11.4 SEC (9.30-11.50) Prothromb Time International Ratio 1.0 (0.9-1.1) Activated Partial Thromboplast Time 28 SEC (23-33) D-Dimer 12.62 mg/L FEU (0.00-0.49) H Sodium Level 125 MMOL/L (136-145) L Potassium Level 4.3 MMOL/L (3.5-5.1) Chloride Level 93 MMOL/L (98-107) L Carbon Dioxide Level 19 MMOL/L (21-32) L Anion Gap 13 mmol/L (5-15) Blood Urea Nitrogen 70 mg/dL (7-18) H Creatinine 4.1 MG/DL (0.55-1.30) H Estimat Glomerular Filtration Rate 18.3 mL/min (>60) Glucose Level 627 MG/DL (74-106) *H Lactic Acid Level 1.50 mmol/L (0.4-2.0) Calcium Level 8.5 MG/DL (8.5-10.1) Magnesium Level 2.2 MG/DL (1.8-2.4) Total Bilirubin 0.7 MG/DL (0.2-1.0) Aspartate Amino Transf (AST/SGOT) 15 U/L (15-37) Alanine Aminotransferase (ALT/SGPT) 21 U/L (12-78) Alkaline Phosphatase 119 U/L (46-116) H Troponin I 0.000 ng/mL (0.000-0.056) Pro-B-Type Natriuretic Peptide 1420 pg/mL (0-125) H Total Protein 7.5 G/DL (6.4-8.2) Albumin 2.1 G/DL (3.4-5.0) L Globulin 5.4 g/dL Albumin/Globulin Ratio 0.4 (1.0-2.7) L Acetone Level Negative (NEGATIVE) Arterial Blood pH 7.361 (7.350-7.450) Arterial Blood Partial Pressure CO2 28.1 mmHg (35.0-45.0) L Arterial Blood Partial Pressure O2 87.5 mmHg (75.0-100.0) Arterial Blood HCO3 15.6 mmol/L (22.0-26.0) *L Arterial Blood Oxygen Saturation 95.9 % (95-100) Arterial Blood Base Excess -8.7 (-2-2) L Luis Test Positive Urine Color Pale yellow Urine Appearance Clear Urine pH 5 (4.5-8.0) Urine Specific [place] 1.010 (1.005-1.035) Urine Protein 2+ (NEGATIVE) H Urine Glucose (UA) 4+ (NEGATIVE) H Urine Ketones Negative (NEGATIVE) Urine Blood 2+ (NEGATIVE) H Urine Nitrite Negative (NEGATIVE) Urine Bilirubin Negative (NEGATIVE) Urine Urobilinogen Normal MG/DL (0.0-1.0) Urine Leukocyte Esterase 2+ (NEGATIVE) H Urine RBC 2-4 /HPF (0 - 0) H Urine WBC 15-20 /HPF (0 - 0) H Urine Squamous Epithelial Cells Occasional /LPF Urine Bacteria Few /HPF (NONE) POC Whole Blood Glucose Pending Test 03/19/20 15:30 03/19/20 18:45 03/19/20 19:00 POC Whole Blood Glucose 367 MG/DL (74-106) H 414 MG/DL (74-106) H Troponin I Pending Norman Smiley MD Mar 19, 2020 19:42
[2020-03-19 20:00] VITALS: BP 140/77
[2020-03-19] MEDS: NovoLOG Insulin Flexpen SUBQ SCH (20:02)
[2020-03-19] MEDS: Heparin 5000 units/ml inj SUBQ SCH (20:03)
[2020-03-19] MEDS ORDERED: TRADJENTA5 MG PO (21:54)
[2020-03-19] MEDS ORDERED: NORMODYNE100 MG ORAL (21:55)
[2020-03-19] MEDS ORDERED: TACROLIMUS30 G1 TP (21:59)
[2020-03-19] MEDS ORDERED: CELLCEPT250 MG ORAL (21:59)
[2020-03-19] MEDS ORDERED: RAPAMUNE0.5 MG PO (22:01)
--- NOTE | 2020-03-19 22:14 | Consultation ---
DATE OF CONSULTATION: 03/19/2020 INFECTIOUS DISEASE CONSULTATION CONSULTING PHYSICIAN: Norman Smiley MD. ATTENDING PHYSICIAN: Trent Sutherland MD. REFERRING PHYSICIAN: Johnie Kelley MD. REASON FOR CONSULTATION: Possible sepsis, UTI, leukocytosis, questionable pneumonia. CHIEF COMPLAINT: The patient's chief complaint coming in the hospital is diabetic ketoacidosis, chest pain. HISTORY OF PRESENT ILLNESS: This is a 55-year-old male who has history of renal transplant. The patient presents to [facility] with diabetic ketoacidosis, hyperglycemia, and acute renal failure. The patient also had chest pain. The patient is being seen by Cardiology. Infectious Disease consultation was requested because the patient has what looks like urinary tract infection, complicated urinary tract infection, hyperglycemic, acute renal failure, and sepsis. The patient had cultures done. Urinalysis is consistent with complicated UTI. The patient was given vancomycin and cefepime in the emergency room. I will continue cefepime for now pending cultures for UTI and sepsis, elevated white count. The patient also had on chest x-ray questionable pneumonia, however, CT scan was more consistent with atelectasis. MAR was noted. Notes and records were reviewed. REVIEW OF SYSTEMS: CONSTITUTIONAL: The patient came in with generalized weakness and hyperglycemia. No fever or chills. He does have maybe some phlegm production. PULMONARY: Some phlegm production, but no significant cough or shortness of breath. No hemoptysis or secretions. CARDIAC: He has some chest pain. GASTROINTESTINAL: No nausea, vomiting, or diarrhea currently. GENITOURINARY: Some dysuria or frequency. He is in renal failure. SKIN: No rash. EXTREMITIES: No extremity pain. NEUROLOGIC: No seizures. Denies fatigue. No focal weakness. No fever or chills. PAST MEDICAL HISTORY: The patient has past medical history of renal transplant, hypertension, diabetes, and history of DVT. Kidney transplant was in 1995. He is also hyperglycemic. He has DKA. He is also anemic. ALLERGIES: Include sulfa drugs. No penicillin allergy. SOCIAL HISTORY: Negative for smoking, alcohol, or drug abuse. FAMILY HISTORY: Noncontributory. MEDICATIONS: Upon reviewing the MAR, the patient is on following medications. He is on cefepime, vancomycin, insulin, aspirin, and pantoprazole. Outside medications were noted and reconciliated. Again, the patient was given vancomycin only x1, cefepime 2 g, aspirin, and pantoprazole. He is getting IV fluids. PHYSICAL EXAMINATION: VITAL SIGNS: Temperature is 97.9, pulse rate 100, respiratory rate 20, blood pressure 146/74. Saturation 98% on room air. Pulse rate has been as high as 106. He had no fevers. GENERAL: Alert and responsive, in no acute distress. No significant shortness of breath noted. HEAD AND NECK: Oral exam, no thrush. Eyes, no icterus. Normocephalic. Neck is supple. No JVD. HEART: Regular. No gallop or murmur. LUNGS: Few bilateral rhonchi and crackles. No definite rales. Decreased breath sounds at bases. ABDOMEN: Soft. Positive bowel sounds. Nontender. SKIN: No rash or dermatitis. MUSCULOSKELETAL: No effusions. Legs are without cellulitis. No septic arthritis. PERIPHERAL VASCULAR: No cyanosis or gangrene. GENITOURINARY: No [place]. No CVA tenderness. LINE SITES: Without phlebitis. NEUROLOGIC: Intact. Nonfocal. Alert and oriented. LABORATORY DATA: White count 14.9, hemoglobin 9.7. Creatinine is 4.1. LFTs were unremarkable. BNP was 1420. Cultures are pending including blood, urine, and urinalysis. SARS testing and COVID testing was negative. Urinalysis - 2+ leukocytes esterase, 15 to 20 white blood cells. Glucose is 627. Blood and urine culture pending. IMAGING STUDIES: Chest x-ray showed interstitial opacities, could be atelectasis versus pneumonia. CT scan of the abdomen and pelvis was consistent with atelectasis, possible esophagitis, renal transplant, atrophic kidneys. Atelectasis of right lung base. Abdominal wall hernia. ASSESSMENT AND PLAN: 1. The patient has urinary tract infection, complicated UTI, elevated white count, possible sepsis, hyperglycemia, acute renal failure. The patient was given vancomycin x1. I am going to continue with cefepime, which the patient was given also. Continue cefepime for gram-negative coverage and coverage for UTI and possible sepsis, elevated white count, complicated urinary tract infection, acute renal failure. Continue cefepime for UTI and sepsis pending final cultures. Check blood culture and urine culture. 2. Questionable community-acquired pneumonia, but more likely this is atelectasis. The patient has no fevers, no secondary respiratory symptoms. 3. COVID testing is negative. 4. Hyperglycemia and DKA. 5. Diabetes. 6. Hypertension. 7. Acute renal failure. 8. IV fluids. 9. Renal transplant. 10. Anemia. 11. History of DVT. 12. Allergies to sulfa drugs. 13. Social history is negative. 14. Family history is noncontributory. (14) 15. MAR is noted. 16. Case discussed with RN. 17. Continue treatment per primary consultants. 18. Chest pain. Workup per Cardiology. (18) Norman Smiley M.D. DR: MARIA LUISA JOB#: [id number] CC:
[2020-03-20] VITALS: BP 126/82
[2020-03-20] MEDS ORDERED: HYDROcodone/Acetamin 5/325 tab ORAL SCH (01:45)
[2020-03-20 04:00] VITALS: BP 131/76
[2020-03-20 05:15] LABS: BASOPHILS % (AUTO) 0.6 % (0.0-2.0); EOSINOPHILS % (AUTO) 0.3 % (0.0-3.0); HEMATOCRIT 27.3 % (42.0-52.0); HEMOGLOBIN 8.6 G/DL (14.2-18.0); LYMPHOCYTES % (AUTO) 10.6 % (20.0-45.0); MEAN CORPUSCULAR VOLUME 83 FL (80-99); MONOCYTES % (AUTO) 11.6 % (1.0-10.0); NEUTROPHILS % (AUTO) 76.9 % (45.0-75.0); PLATELET COUNT 228 K/UL (150-450); RED BLOOD COUNT 3.29 M/UL (4.70-6.10); RED CELL DISTRIBUTION WIDTH 13.2 % (11.6-14.8); WHITE BLOOD COUNT 13.1 K/UL (4.8-10.8)
[2020-03-20 05:42] LABS: BLOOD UREA NITROGEN 61 mg/dL (7-18); CALCIUM 8.2 MG/DL (8.5-10.1); CARBON DIOXIDE 19 MMOL/L (21-32); CHLORIDE 99 MMOL/L (98-107); CREATININE 3.4 MG/DL (0.55-1.30); POTASSIUM 3.9 MMOL/L (3.5-5.1); SODIUM 131 MMOL/L (136-145)
[2020-03-20] MEDS: NovoLOG Insulin Flexpen SUBQ SCH ×6 (05:54→20:28)
[2020-03-20 08:00] VITALS: BP 137/80
--- NOTE | 2020-03-20 08:13 | Cardiac Electrophysiology PN ---
Assessment/Plan Assessment/Plan 1. Shortness of breath. EKG shows lateral T-wave inversion. Ruled out for RI Patient's troponins are negative x 3. The patient's D-dimer is elevated. Ventilation/perfusion scan showed low probability for PE 2. HTN. Avoid ACEI or ARBfor renal failure. Add Norvasc 5 po daily Avoid beta-rowan in view of uncontrolled diabetes. 3. Hyponatremia, likely due to the patient's blood glucose of 620.On NS 70 cc/hr 4. Uncontrolled diabetes.Start NS at 70cc/hr 5. Acute renal failure. BUN of 70 and creatinine of 4.1. Improved to 61/3.4 Subjective Subjective Alert in NAD. No CP or SOB. Objective Last 24 Hour Vital Signs Date Time Temp Pulse Resp B/P (MAP) Pulse Ox O2 Delivery O2 Flow Rate FiO2 03/20/20 04:00 Room Air 03/20/20 04:00 98.4 106 18 131/76 (94) 98 03/20/20 03:31 109 03/20/20 02:21 98.8 03/20/20 00:00 98.8 102 20 126/82 (97) 99 03/20/20 00:00 Room Air 03/19/20 23:32 116 03/19/20 20:34 117 03/19/20 20:00 Room Air 03/19/20 20:00 98.9 107 20 140/77 (98) 99 03/19/20 17:49 97.9 100 20 146/74 (98) 98 03/19/20 17:43 98.1 100 19 143/79 98 Room Air 03/19/20 12:19 98.1 100 19 143/79 98 Room Air 03/19/20 12:19 106 19 Room Air 03/19/20 12:10 98.1 106 19 143/79 (100) 98 Room Air Intake and Output 03/19/20 03/20/20 19:00 07:00 Intake Total 1000 ml Output Total 1050 ml Balance 1000 ml -1050 ml Intake IV Total 1000 ml Output Urine Total 1050 ml Laboratory Tests Test 03/19/20 12:31 03/19/20 12:35 03/19/20 12:55 03/19/20 14:24 White Blood Count 14.9 K/UL (4.8-10.8) H Red Blood Count 3.75 M/UL (4.70-6.10) L Hemoglobin 9.7 G/DL (14.2-18.0) L Hematocrit 31.8 % (42.0-52.0) L Mean Corpuscular Volume 85 FL (80-99) Mean Corpuscular Hemoglobin 25.8 PG (27.0-31.0) L Mean Corpuscular Hemoglobin Concent 30.4 G/DL (32.0-36.0) L Red Cell Distribution Width 13.4 % (11.6-14.8) Platelet Count 223 K/UL (150-450) Mean Platelet Volume 6.2 FL (6.5-10.1) L Neutrophils (%) (Auto) 79.3 % (45.0-75.0) H Lymphocytes (%) (Auto) 8.7 % (20.0-45.0) L Monocytes (%) (Auto) 11.1 % (1.0-10.0) H Eosinophils (%) (Auto) 0.2 % (0.0-3.0) Basophils (%) (Auto) 0.8 % (0.0-2.0) Prothrombin Time 11.4 SEC (9.30-11.50) Prothromb Time International Ratio 1.0 (0.9-1.1) Activated Partial Thromboplast Time 28 SEC (23-33) D-Dimer 12.62 mg/L FEU (0.00-0.49) H Sodium Level 125 MMOL/L (136-145) L Potassium Level 4.3 MMOL/L (3.5-5.1) Chloride Level 93 MMOL/L (98-107) L Carbon Dioxide Level 19 MMOL/L (21-32) L Anion Gap 13 mmol/L (5-15) Blood Urea Nitrogen 70 mg/dL (7-18) H Creatinine 4.1 MG/DL (0.55-1.30) H Estimat Glomerular Filtration Rate 18.3 mL/min (>60) Glucose Level 627 MG/DL (74-106) *H Lactic Acid Level 1.50 mmol/L (0.4-2.0) Calcium Level 8.5 MG/DL (8.5-10.1) Magnesium Level 2.2 MG/DL (1.8-2.4) Total Bilirubin 0.7 MG/DL (0.2-1.0) Aspartate Amino Transf (AST/SGOT) 15 U/L (15-37) Alanine Aminotransferase (ALT/SGPT) 21 U/L (12-78) Alkaline Phosphatase 119 U/L (46-116) H Troponin I 0.000 ng/mL (0.000-0.056) Pro-B-Type Natriuretic Peptide 1420 pg/mL (0-125) H Total Protein 7.5 G/DL (6.4-8.2) Albumin 2.1 G/DL (3.4-5.0) L Globulin 5.4 g/dL Albumin/Globulin Ratio 0.4 (1.0-2.7) L Acetone Level Negative (NEGATIVE) Arterial Blood pH 7.361 (7.350-7.450) Arterial Blood Partial Pressure CO2 28.1 mmHg (35.0-45.0) L Arterial Blood Partial Pressure O2 87.5 mmHg (75.0-100.0) Arterial Blood HCO3 15.6 mmol/L (22.0-26.0) *L Arterial Blood Oxygen Saturation 95.9 % (95-100) Arterial Blood Base Excess -8.7 (-2-2) L Luis Test Positive Urine Color Pale yellow Urine Appearance Clear Urine pH 5 (4.5-8.0) Urine Specific [place] 1.010 (1.005-1.035) Urine Protein 2+ (NEGATIVE) H Urine Glucose (UA) 4+ (NEGATIVE) H Urine Ketones Negative (NEGATIVE) Urine Blood 2+ (NEGATIVE) H Urine Nitrite Negative (NEGATIVE) Urine Bilirubin Negative (NEGATIVE) Urine Urobilinogen Normal MG/DL (0.0-1.0) Urine Leukocyte Esterase 2+ (NEGATIVE) H Urine RBC 2-4 /HPF (0 - 0) H Urine WBC 15-20 /HPF (0 - 0) H Urine Squamous Epithelial Cells Occasional /LPF Urine Bacteria Few /HPF (NONE) POC Whole Blood Glucose Pending Test 03/19/20 15:30 03/19/20 18:45 03/19/20 19:00 03/19/20 19:58 POC Whole Blood Glucose 367 MG/DL (74-106) H 414 MG/DL (74-106) H Pending Troponin I 0.000 ng/mL (0.000-0.056) Test 03/20/20 03:05 03/20/20 05:12 White Blood Count 13.1 K/UL (4.8-10.8) H Red Blood Count 3.29 M/UL (4.70-6.10) L Hemoglobin 8.6 G/DL (14.2-18.0) L Hematocrit 27.3 % (42.0-52.0) L Mean Corpuscular Volume 83 FL (80-99) Mean Corpuscular Hemoglobin 26.1 PG (27.0-31.0) L Mean Corpuscular Hemoglobin Concent 31.5 G/DL (32.0-36.0) L Red Cell Distribution Width 13.2 % (11.6-14.8) Platelet Count 228 K/UL (150-450) Mean Platelet Volume 6.7 FL (6.5-10.1) Neutrophils (%) (Auto) 76.9 % (45.0-75.0) H Lymphocytes (%) (Auto) 10.6 % (20.0-45.0) L Monocytes (%) (Auto) 11.6 % (1.0-10.0) H Eosinophils (%) (Auto) 0.3 % (0.0-3.0) Basophils (%) (Auto) 0.6 % (0.0-2.0) Sodium Level 131 MMOL/L (136-145) L Potassium Level 3.9 MMOL/L (3.5-5.1) Chloride Level 99 MMOL/L (98-107) Carbon Dioxide Level 19 MMOL/L (21-32) L Blood Urea Nitrogen 61 mg/dL (7-18) H Creatinine 3.4 MG/DL (0.55-1.30) H Estimat Glomerular Filtration Rate 22.8 mL/min (>60) Glucose Level 299 MG/DL (74-106) #H Calcium Level 8.2 MG/DL (8.5-10.1) L Troponin I 0.000 ng/mL (0.000-0.056) Pro-B-Type Natriuretic Peptide 858 pg/mL (0-125) H POC Whole Blood Glucose Pending Microbiology Date/Time Source Procedure Growth Status 03/19/20 12:55 Urine,Clean Catch Urine Culture - Preliminary NO GROWTH Resulted 03/19/20 12:55 Nasopharynx SARS-CoV-2 RdRp Gene Assay - Final Complete 03/19/20 12:31 Blood Blood Culture - Preliminary Gram Positive Cocci Resulted 03/19/20 12:15 Blood Blood Culture - Preliminary Gram Positive Cocci Resulted Objective HEAD AND NECK: Shows no JVD. LUNGS: Decreased breath sounds. CARDIOVASCULAR: Shows regular S1 and S2 with no gallop. ABDOMEN: Soft. EXTREMITIES: No pitting edema. Ivan Martinez MD Mar 20, 2020 08:13
[2020-03-20] MEDS ORDERED: Levemir Flexpen SUBQ SCH ×2 (09:00→12:00)
[2020-03-20] MEDS: Heparin 5000 units/ml inj SUBQ SCH ×2 (09:38→20:24)
--- NOTE | 2020-03-20 10:41 | General Progress Note ---
Subjective Constitutional: Denies: no symptoms, chills, diaphoresis, fever, malaise, weakness, other HEENT: Denies: no symptoms, eye pain, blurred vision, tearing, double vision, ear pain, ear discharge, nose pain, nose congestion, throat pain, throat swelling, mouth pain, mouth swelling, other Cardiovascular: Denies: no symptoms, chest pain, edema, irregular heart rate, lightheadedness, palpitations, syncope, other Respiratory: Denies: no symptoms, cough, orthopnea, shortness of breath, SOB with excertion, SOB at rest, sputum, stridor, wheezing, other Gastrointestinal/Abdominal: Reports: abdominal pain; Denies: no symptoms, abdomen distended, black stools, tarry stools, blood in stool, constipated, diarrhea, difficulty swallowing, nausea, poor appetite, poor fluid intake, rectal bleeding, vomiting, other Genitourinary: Denies: no symptoms, burning, discharge, frequency, flank pain, hematuria, incontinence, pain, urgency, other Neurologic/Psychiatric: Denies: no symptoms, anxiety, depressed, emotional problems, headache, numbness, paresthesia, pre-existing deficit, seizure, ti ngling, tremors, weakness, other Endocrine: Denies: no symptoms, excessive sweating, flushing, intolerance to cold, intolerance to heat, increased hunger, increased thirst, increased urine, unexplained weight gain, unexplained weight loss, other Hematologic/Lymphatic: Denies: no symptoms, anemia, easy bleeding, easy bruising, other Allergies: Coded Allergies: SULFA (SULFONAMIDE ANTIBIOTICS) (Unverified Allergy, Unknown, 02/20/20) SULFUR (Unverified Allergy, Unknown, 03/19/20) Subjective No acute events overnight. Patient continues to have episodic abdominal/chest pain. No shortness of breath, no hemodynamic instability, peripheral edema, orthopnea, PND. He believes it may be related to indigestion however not sure. Cardiac following. Objective Last 24 Hour Vital Signs Date Time Temp Pulse Resp B/P (MAP) Pulse Ox O2 Delivery O2 Flow Rate FiO2 03/20/20 09:37 98 137/80 03/20/20 08:00 98.1 98 20 137/80 (99) 100 03/20/20 04:00 Room Air 03/20/20 04:00 98.4 106 18 131/76 (94) 98 03/20/20 03:31 109 03/20/20 02:21 98.8 03/20/20 00:00 98.8 102 20 126/82 (97) 99 03/20/20 00:00 Room Air 03/19/20 23:32 116 03/19/20 20:34 117 03/19/20 20:00 Room Air 03/19/20 20:00 98.9 107 20 140/77 (98) 99 03/19/20 17:49 97.9 100 20 146/74 (98) 98 03/19/20 17:43 98.1 100 19 143/79 98 Room Air 03/19/20 12:19 98.1 100 19 143/79 98 Room Air 03/19/20 12:19 106 19 Room Air 03/19/20 12:10 98.1 106 19 143/79 (100) 98 Room Air Intake and Output 03/19/20 03/20/20 19:00 07:00 Intake Total 1000 ml Output Total 1050 ml Balance 1000 ml -1050 ml Intake IV Total 1000 ml Output Urine Total 1050 ml Laboratory Tests 03/19/20 12:31: White Blood Count 14.9H, Red Blood Count 3.75L, Hemoglobin 9.7L, Hematocrit 31.8L, Mean Corpuscular Volume 85, Mean Corpuscular Hemoglobin 25.8L, Mean Corpuscular Hemoglobin Concent 30.4L, Red Cell Distribution Width 13.4, Platelet Count 223, Mean Platelet Volume 6.2L, Neutrophils (%) (Auto) 79.3H, Lymphocytes (%) (Auto) 8.7L, Monocytes (%) (Auto) 11.1H, Eosinophils (%) (Auto) 0.2, Basophils (%) (Auto) 0.8, Prothrombin Time 11.4, Prothromb Time International Ratio 1.0, Activated Partial Thromboplast Time 28, D-Dimer 12.62H, Sodium Level 125L, Potassium Level 4.3, Chloride Level 93L, Carbon Dioxide Level 19L, Anion Gap 13, Blood Urea Nitrogen 70H, Creatinine 4.1H, Estimat Glomerular Filtration Rate 18.3, Glucose Level 627*H, Lactic Acid Level 1.50, Calcium Level 8.5, Magnesium Level 2.2, Total Bilirubin 0.7, Aspartate Amino Transf (AST/SGOT) 15, Alanine Aminotransferase (ALT/SGPT) 21, Alkaline Phosphatase 119H, Troponin I 0.000, Pro-B-Type Natriuretic Peptide 1420H, Total Protein 7.5, Albumin 2.1L, Globulin 5.4, Albumin/Globulin Ratio 0.4L, Acetone Level Negative 03/19/20 12:35: Arterial Blood pH 7.361, Arterial Blood Partial Pressure CO2 28.1L, Arterial Blood Partial Pressure O2 87.5, Arterial Blood HCO3 15.6*L, Arterial Blood Oxygen Saturation 95.9, Arterial Blood Base Excess -8.7L, Luis Test Positive 03/19/20 12:55: Urine Color Pale yellow, Urine Appearance Clear, Urine pH 5, Urine Specific [place] 1.010, Urine Protein 2+H, Urine Glucose (UA) 4+H, Urine Ketones Negative, Urine Blood 2+H, Urine Nitrite Negative, Urine Bilirubin Negative, Urine Urobilinogen Normal, Urine Leukocyte Esterase 2+H, Urine RBC 2-4H, Urine WBC 15-20H, Urine Squamous Epithelial Cells Occasional, Urine Bacteria Few 03/19/20 14:24: POC Whole Blood Glucose [Pending] 03/19/20 15:30: POC Whole Blood Glucose 367H 03/19/20 18:45: POC Whole Blood Glucose 414H 03/19/20 19:00: Troponin I 0.000 03/19/20 19:58: POC Whole Blood Glucose [Pending] 03/20/20 03:05: White Blood Count 13.1H, Red Blood Count 3.29L, Hemoglobin 8.6L, Hematocrit 27.3L, Mean Corpuscular Volume 83, Mean Corpuscular Hemoglobin 26.1L, Mean Corpuscular Hemoglobin Concent 31.5L, Red Cell Distribution Width 13.2, Platelet Count 228, Mean Platelet Volume 6.7, Neutrophils (%) (Auto) 76.9H, Lymphocytes (%) (Auto) 10.6L, Monocytes (%) (Auto) 11.6H, Eosinophils (%) (Auto) 0.3, Basophils (%) (Auto) 0.6, Sodium Level 131L, Potassium Level 3.9, Chloride Level 99, Carbon Dioxide Level 19L, Blood Urea Nitrogen 61H, Creatinine 3.4H, Estimat Glomerular Filtration Rate 22.8, Glucose Level 299#H, Calcium Level 8.2L, Troponin I 0.000, Pro-B-Type Natriuretic Peptide 858H 03/20/20 05:12: POC Whole Blood Glucose [Pending] Height (Feet): 5 Height (Inches): 10.00 Weight (Pounds): 214 General Appearance: no apparent distress, alert, alert oriented x3 EENT: PERRL/EOMI, normal ENT inspection Neck: normal alignment, supple Cardiovascular: normal rate, regular rhythm, no JVD Respiratory/Chest: lungs clear, normal breath sounds Abdomen: normal bowel sounds, non tender, soft Extremities: normal range of motion, non-tender Edema: no edema noted Arm (L), no edema noted Arm (R), no edema noted Leg (L), no edema noted Leg (R), no edema noted Pedal (L), no edema noted Pedal (R), no edema noted 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 A: # Hyperglycemia/HHS # Atypical chest pain with ACS rule out # Sepsis UTI # Acute renal failure secondary to prerenal azotemia versus sepsis ATN # History of renal transplant in 1997 on immunosuppressants # UTI # Pseudohyponatremia secondary to hyperglycemia # Diabetes Mellitus type IIuncontrolled # Nausea/Vomiting # Abdominal pain # History of DVT # Normocytic anemia secondary to iron deficiency anemia versus anemia of chronic disease versus CKD P: Hemodynamically stable, no respiratory compromise saturating well on room air, Keep O2 sats greater 92% Sugars improved we will start long-acting and premeal regimen Blood glucose goal 140-180 Follow-up A1c, lipid panel Continue IVF Troponin x3 negative, EKG with nonspecific T wave inversions possibility is ischemic given patient's cardiac risk V/Q scan low probability for PE Continue cefepime per ID Follow-up urine cultures, tailor antibiotics to results Patient on immunosuppressive's, will defer to nephrology Monitor renal function and electrolytes Follow-up renal ultrasound We will trial PPI and Mylanta as possible treatment for abdominal pain - Endocrinology consult alize Martinez appreciated - Cardiology consult Dr. Toluie, recs appreciated - Nephro consult Dr. Gomez, recs appreciated - ID consult Dr. Murphy, recs appreciated Diet: low carb DVT ppx: heparin subQ GI: PPI Code status: Full Dispo: resolution of hyperglycemia, and evaluation of pain Time spent on this encounter was 47 minutes which included 26 minutes of counseling and care coordination. I discussed with the nurse at bedside. Time of note may not reflect time patient was seen. Poli Hendricks D.O Mar 20, 2020 10:41
[2020-03-20 12:00] VITALS: BP 139/84
--- NOTE | 2020-03-20 13:18 | Consultation ---
History of Present Illness General Chief Complaint: Chest Pain Reason for Consultation: DAHIANA on CKD- renal tx Present Illness HPI Oliver Hinton is a 55 yo M with PMH of Kidney transplant, HTN, DM, Hx of DVT who presents with chest pain, abdominal pain, N/V and found to have marked hype rglycemia. He reports symptoms began 2-3 days ago, reports poor PO intake. Denies insulin use. Denies fever, chills, cough, sick contacts, contact with COVID-19 patients. Has had profound hyperglycemia before and is unable to check glucose at home. Denies hematemesis. PMH: Kidney transplant, HTN, DM, Hx of DVT PSH: Kidney transplant at [facility] in 1995 FH: patient does not know SH: denies smoking, drinking, or recreational drug use Allergies: Coded Allergies: SULFA (SULFONAMIDE ANTIBIOTICS) (Unverified Allergy, Unknown, 02/20/20) SULFUR (Unverified Allergy, Unknown, 03/19/20) Medication History Scheduled Labetalol HCl (Labetalol HCl), 100 MG ORAL EVERY 12 HOURS, (Reported) Mycophenolate Mofetil (Cellcept), Unknown Dose ORAL EVERY 12 HOURS, (Reported) Miscellaneous Medications Linagliptin (Tradjenta), Unknown Dose PO, (Reported) Sirolimus (Rapamune), Unknown Dose PO, (Reported) Tacrolimus (Tacrolimus), Unknown Dose TP, (Reported) Patient History Healthcare decision maker N Resuscitation status Advanced Directive on File Review of Systems All Other Systems: negative except mentioned in HPI Physical Exam General Appearance: no apparent distress Lines, tubes and drains: peripheral HEENT: normocephalic, atraumatic Neck: non-tender, normal alignment Respiratory/Chest: chest wall non-tender, lungs clear Cardiovascular/Chest: normal peripheral pulses, normal rate, regular rhythm Abdomen: normal bowel sounds, non tender, soft Extremities: normal range of motion Skin Exam: normal pigmentation, no diaphoresis Neurologic: alert, oriented x 3 Last 24 Hour Vital Signs Date Time Temp Pulse Resp B/P (MAP) Pulse Ox O2 Delivery O2 Flow Rate FiO2 03/20/20 12:00 97.7 98 18 139/84 (102) 98 98 03/20/20 09:37 98 137/80 03/20/20 08:00 Room Air 03/20/20 08:00 98.1 98 20 137/80 (99) 100 11/17/20 07:39 105 03/20/20 04:00 Room Air 03/20/20 04:00 98.4 106 18 131/76 (94) 98 03/20/20 03:31 109 03/20/20 02:21 98.8 03/20/20 00:00 98.8 102 20 126/82 (97) 99 03/20/20 00:00 Room Air 03/19/20 23:32 116 03/19/20 20:34 117 03/19/20 20:00 Room Air 03/19/20 20:00 98.9 107 20 140/77 (98) 99 03/19/20 17:49 97.9 100 20 146/74 (98) 98 03/19/20 17:43 98.1 100 19 143/79 98 Room Air Intake and Output 03/19/20 03/20/20 19:00 07:00 Intake Total 1000 ml Output Total 1050 ml Balance 1000 ml -1050 ml IV Total 1000 ml Output Urine Total 1050 ml Laboratory Tests Test 03/19/20 14:24 03/19/20 15:30 03/19/20 18:45 03/19/20 19:00 POC Whole Blood Glucose Pending 367 MG/DL (74-106) H 414 MG/DL (74-106) H Troponin I 0.000 ng/mL (0.000-0.056) Test 03/19/20 19:58 03/20/20 03:05 03/20/20 05:12 POC Whole Blood Glucose Pending Pending White Blood Count 13.1 K/UL (4.8-10.8) H Red Blood Count 3.29 M/UL (4.70-6.10) L Hemoglobin 8.6 G/DL (14.2-18.0) L Hematocrit 27.3 % (42.0-52.0) L Mean Corpuscular Volume 83 FL (80-99) Mean Corpuscular Hemoglobin 26.1 PG (27.0-31.0) L Mean Corpuscular Hemoglobin Concent 31.5 G/DL (32.0-36.0) L Red Cell Distribution Width 13.2 % (11.6-14.8) Platelet Count 228 K/UL (150-450) Mean Platelet Volume 6.7 FL (6.5-10.1) Neutrophils (%) (Auto) 76.9 % (45.0-75.0) H Lymphocytes (%) (Auto) 10.6 % (20.0-45.0) L Monocytes (%) (Auto) 11.6 % (1.0-10.0) H Eosinophils (%) (Auto) 0.3 % (0.0-3.0) Basophils (%) (Auto) 0.6 % (0.0-2.0) Sodium Level 131 MMOL/L (136-145) L Potassium Level 3.9 MMOL/L (3.5-5.1) Chloride Level 99 MMOL/L (98-107) Carbon Dioxide Level 19 MMOL/L (21-32) L Blood Urea Nitrogen 61 mg/dL (7-18) H Creatinine 3.4 MG/DL (0.55-1.30) H Estimat Glomerular Filtration Rate 22.8 mL/min (>60) Glucose Level 299 MG/DL (74-106) #H Calcium Level 8.2 MG/DL (8.5-10.1) L Troponin I 0.000 ng/mL (0.000-0.056) Pro-B-Type Natriuretic Peptide 858 pg/mL (0-125) H Height (Feet): 5 Height (Inches): 10.00 Weight (Pounds): 214 Medications Current Medications Medications (Trade) Dose Ordered Sig/Angelo Route PRN Reason Start Time Stop Time Status Last Admin Dose Admin Amlodipine Besylate (Norvasc) 5 mg DAILY ORAL 03/20/20 09:00 04/19/20 08:59 03/20/20 09:37 Cefepime HCl 1 gm/ Dextrose 50 ml @ 100 mls/hr Q24H IVPB 03/20/20 13:00 03/27/20 12:59 Clonidine HCl (Catapres Tab) 0.1 mg Q4H PRN ORAL sbp>170 03/20/20 08:15 06/18/20 08:14 Dextrose (Dextrose 50%) 25 ml Q30M PRN IV Hypoglycemia 03/19/20 19:45 06/17/20 19:44 Dextrose (Dextrose 50%) 25 ml Q30M PRN IV Hypoglycemia 03/20/20 11:00 06/18/20 10:59 Dextrose (Dextrose 50%) 50 ml Q30M PRN IV Hypoglycemia 03/19/20 19:45 06/17/20 19:44 Dextrose (Dextrose 50%) 50 ml Q30M PRN IV Hypoglycemia 03/20/20 11:00 06/18/20 10:59 Heparin Sodium (Porcine) (Heparin 5000 units/ml) 5,000 units EVERY 12 HOURS SUBQ 03/19/20 21:00 05/03/20 20:59 03/20/20 09:38 Insulin Aspart (NovoLOG) BEFORE MEALS AND HS SUBQ 03/19/20 21:00 06/17/20 20:59 03/20/20 11:52 Insulin Aspart (NovoLOG) 3 units NOVOTIAC SUBQ 03/20/20 11:50 06/18/20 11:49 03/20/20 11:53 Insulin Detemir (Levemir) 10 units Q24H SUBQ 03/20/20 12:00 06/18/20 11:59 03/20/20 13:08 Pantoprazole (Protonix) 40 mg DAILY ORAL 03/20/20 11:00 04/19/20 10:59 03/20/20 11:12 Sodium Chloride 1,000 ml @ 70 mls/hr [id number] IV 03/20/20 07:15 04/19/20 07:14 03/20/20 08:00 Assessment/Plan Diagnosis [place] I: #DAHIANA on chronic transplant nephropathy- s/p renal tx at [facility] in 1995- #severe hyperglycemia- HHS #pseudo- Hyponatremia in the setting of HHS #UTI #DM- hyperglycemia #HTN #HLD #h/o DVT - patient unsure of doses of home immunosuppressants - for now resume prograf 1mg BID - check daily prograf level - continue NS at 70 cc/hr - urine chem - amlodipine 5mg daily - renal tx - on cefepime - follow cx - BG control - monitor UOP - monitor weights time spent 65 min Frandy Gomez M.D. Mar 20, 2020 13:18
--- NOTE | 2020-03-20 14:29 | General Progress Note ---
Advance Care Planning Advance Care Planning Advance Care Planning [facility] An independent Hospitalist group, where every patient is our [facility] Internal Medicine Hospitalist Advanced Care Planning Note Please contact us at Date of Discussion: A [id number] discussion with the patient regarding the patient's advanced care planning took place during this hospitalization on the above date. The discussion included the explanation and discussion of advance directives and associated forms/documents, as well as the patient's current code status. We also discussed at length the patient's medical conditions (both acute and chroni c), general prognosis, treatment options, and goals of care. The following summarizes the discussion: Advance Care Planning/Goals of Care: - Will attempt to fill out an AD and/or POLST with the patient prior to discharge, if not already completed - Continue current evaluation and management of any acute and chronic medical issues - Will continue to support the patient/family - Will continue to discuss both short- and long-term goals of care DPOA-HC/Surrogate Decision Maker: None currently appointed Code Status: Full Code Advanced Care Planning Forms/Documents Completed: Deferred until later encounter/visit A total of 22 minutes was spent on this discussion, including counseling, answering questions, and completing, if any, pertinent advanced care planning forms/documents. Time of note may not reflect time of encounter. Poli Hendricks D.O Mar 20, 2020 14:29
--- NOTE | 2020-03-20 15:30 | Cardiology Report ---
APPROVED REPORT EXAM: Two-dimensional and M-mode echocardiogram with Doppler and color Doppler. INDICATION Chest Pain M-Mode DIMENSIONS IVSd1.2 (0.7-1.1cm)Left Atrium (MM)3.7 (1.6-4.0cm) LVDd3.0 (3.5-5.6cm)Aortic Root3.4 (2.0-3.7cm) PWd0.7 (0.7-1.1cm)Aortic Cusp Exc.1.7 (1.5-2.0cm) IVSs1.0 cm LVDs2.2 (2.5-4.0cm) PWs1.6 cm <Conclusion> Technically difficult study due to poor acoustical windows with por endocardial and valvular definition Normal left ventricular chamber size, systolic function and wall motion to extent visualized. Left ventricular ejection fraction estimated to be 60 %. No evidence of left ventricular hypertrophy. No evidence of pericardial fat or effusion. All other cardiac chamber sizes are within normal limits. Calcification of aortic valve with adequate cusp excursion. Thickened mitral valve leaflets with normal excursion. Mitral annulus and aortic root calcification. Pulmonic valve not well visualized. Normal tricuspid valve structure. IVC at normal size with physiologic collapse. A color flow and spectral Doppler study was performed and revealed: No aortic regurgitation. Trace mitral regurgitation. Mitral diastolic velocities suggest reduced left ventricular relaxation c/w mild LV diastolic dysfunction (Grade I ). Trace tricuspid regurgitation. Tricuspid systolic velocities suggests peak right ventricular systolic pressure of 22 mmHg.
--- NOTE | 2020-03-20 15:53 | Cardiology Report ---
APPROVED REPORT EKG Measurement Heart [id number] <Conclusion> Sinus tachycardia Otherwise normal ECG
[2020-03-20 16:00] VITALS: BP 140/87
--- NOTE | 2020-03-20 18:11 | General Progress Note ---
Subjective Allergies: Coded Allergies: SULFA (SULFONAMIDE ANTIBIOTICS) (Unverified Allergy, Unknown, 02/20/20) SULFUR (Unverified Allergy, Unknown, 03/19/20) All Systems: reviewed and negative except above Subjective events noted interval notes reviewed Item Value Date Time Bedside Blood Glucose 215 mg/dl H 03/20/20 1714 Bedside Blood Glucose 227 mg/dl H 03/20/20 1308 Bedside Blood Glucose 303 mg/dl H 03/20/20 0554 Bedside Blood Glucose 298 mg/dl H 03/19/202001 Bedside Blood Glucose 414 mg/dl H 03/19/20 1850 Objective Last 24 Hour Vital Signs Date Time Temp Pulse Resp B/P (MAP) Pulse Ox O2 Delivery O2 Flow Rate FiO2 03/20/20 16:00 Room Air 03/20/20 16:00 98.3 104 20 140/87 (104) 99 03/20/20 15:27 101 03/20/20 12:00 97.7 98 18 139/84 (102) 98 98 03/20/20 12:00 Room Air 03/20/20 11:40 98 03/20/20 09:37 98 137/80 03/20/20 08:00 Room Air 03/20/20 08:00 98.1 98 20 137/80 (99) 100 03/20/20 07:39 105 03/20/20 04:00 Room Air 03/20/20 04:00 98.4 106 18 131/76 (94) 98 03/20/20 03:31 109 03/20/20 02:21 98.8 03/20/20 00:00 98.8 102 20 126/82 (97) 99 03/20/20 00:00 Room Air 03/19/20 23:32 116 03/19/20 20:34 117 03/19/20 20:00 Room Air 03/19/20 20:00 98.9 107 20 140/77 (98) 99 Intake and Output 03/19/20 03/20/20 19:00 07:00 Intake Total 1000 ml Output Total 1050 ml Balance 1000 ml -1050 ml IV Total 1000 ml Output Urine Total 1050 ml Laboratory Tests 03/19/20 18:45: POC Whole Blood Glucose 414H 03/19/20 19:00: Troponin I 0.000 03/19/20 19:58: POC Whole Blood Glucose [Pending] 03/20/20 03:05: Troponin I 0.000, White Blood Count 13.1H, Red Blood Count 3.29L, Hemoglobin 8.6L, Hematocrit 27.3L, Mean Corpuscular Volume 83, Mean Corpuscular Hemoglobin 26.1L, Mean Corpuscular Hemoglobin Concent 31.5L, Red Cell Distribution Width 13.2, Platelet Count 228, Mean Platelet Volume 6.7, Neutrophils (%) (Auto) 76.9H , Lymphocytes (%) (Auto) 10.6L, Monocytes (%) (Auto) 11.6H, Eosinophils (%) (Auto) 0.3, Basophils (%) (Auto) 0.6, Sodium Level 131L, Potassium Level 3.9, Chloride Level 99, Carbon Dioxide Level 19L, Blood Urea Nitrogen 61H, Creatinine 3.4H, Estimat Glomerular Filtration Rate 22.8, Glucose Level 299#H, Calcium Level 8.2L, Pro-B-Type Natriuretic Peptide 858H 03/20/20 05:12: POC Whole Blood Glucose [Pending] Height (Feet): 5 Height (Inches): 10.00 Weight (Pounds): 214 General Appearance: no apparent distress Cardiovascular: normal rate Respiratory/Chest: lungs clear Abdomen: normal bowel sounds Objective Current Medications Medications (Trade) Dose Ordered Sig/Angelo Route PRN Reason Start Time Stop Time Status Last Admin Dose Admin Amlodipine Besylate (Norvasc) 5 mg DAILY ORAL 03/20/20 09:00 04/19/20 08:59 03/20/20 09:37 Cefepime HCl 1 gm/ Dextrose 50 ml @ 100 mls/hr Q24H IVPB 03/20/20 13:00 03/27/20 12:59 03/20/20 13:51 Clonidine HCl (Catapres Tab) 0.1 mg Q4H PRN ORAL sbp>170 03/20/20 08:15 06/18/20 08:14 Dextrose (Dextrose 50%) 25 ml Q30M PRN IV Hypoglycemia 03/20/20 11:00 06/18/20 10:59 Dextrose (Dextrose 50%) 50 ml Q30M PRN IV Hypoglycemia 03/20/20 11:00 06/18/20 10:59 Heparin Sodium (Porcine) (Heparin 5000 units/ml) 5,000 units EVERY 12 HOURS SUBQ 03/19/20 21:00 05/03/20 20:59 03/20/20 09:38 Insulin Aspart (NovoLOG) BEFORE MEALS AND HS SUBQ 03/19/20 21:00 06/17/20 20:59 03/20/20 17:13 Insulin Aspart (NovoLOG) 3 units NOVOTIAC SUBQ 03/20/20 11:50 06/18/20 11:49 03/20/20 17:14 Insulin Detemir (Levemir) 10 units Q24H SUBQ 03/20/20 12:00 06/18/20 11:59 03/20/20 13:08 Pantoprazole (Protonix) 40 mg DAILY ORAL 03/20/20 11:00 04/19/20 10:59 03/20/20 11:12 Sodium Chloride 1,000 ml @ 70 mls/hr [id number] IV 03/20/20 07:15 04/19/20 07:14 03/20/20 08:00 Assessment/Plan Problem List: (1) Noncompliance with medication regimen ICD Codes: Z91.14 - Patient's other noncompliance with medication regimen; E11.65 - Type 2 diabetes mellitus with hyperglycemia SNOMED: 111828681 (2) Anemia ICD Codes: D64.9 - Anemia, unspecified SNOMED: 531329550 (3) Hyperosmolar hyperglycemic state (HHS) ICD Codes: E11.00 - Type 2 diabetes mellitus with hyperosmolarity without nonketotic hyperglycemic-hyperosmolar coma (NKHHC); E11.65 - Type 2 diabetes mellitus with hyperglycemia SNOMED: 632305785 (4) Hyperglycemia ICD Codes: R73.9 - Hyperglycemia, unspecified; E11.65 - Type 2 diabetes mellitus with hyperglycemia SNOMED: 65889000 Assessment/Plan: increase Levemir to 15 units daily increase Novolog to 5 units ac tid continue Novolog sliding scale ac / hs Дмитрий Tamez MD Mar 20, 2020 18:11
[2020-03-20 20:00] VITALS: BP 146/85
[2020-03-20] MEDS: HYDROcodone/Acetamin 5/325 tab ORAL PRN (23:22)
[2020-03-21] VITALS: BP 147/89
[2020-03-21 04:00] VITALS: BP 150/85
[2020-03-21] MEDS: NovoLOG Insulin Flexpen SUBQ SCH ×7 (05:42→21:03)
[2020-03-21 05:53] LABS: BASOPHILS % (AUTO) 0.9 % (0.0-2.0); EOSINOPHILS % (AUTO) 1.3 % (0.0-3.0); HEMATOCRIT 27.4 % (42.0-52.0); HEMOGLOBIN 8.5 G/DL (14.2-18.0); LYMPHOCYTES % (AUTO) 17.3 % (20.0-45.0); MEAN CORPUSCULAR VOLUME 83 FL (80-99); MONOCYTES % (AUTO) 11.6 % (1.0-10.0); PLATELET COUNT 238 K/UL (150-450); RED BLOOD COUNT 3.32 M/UL (4.70-6.10); RED CELL DISTRIBUTION WIDTH 13.5 % (11.6-14.8); WHITE BLOOD COUNT 11.3 K/UL (4.8-10.8)
[2020-03-21 06:07] LABS: ANION GAP 12 mmol/L (5-15); BLOOD UREA NITROGEN 45 mg/dL (7-18); CALCIUM 8.1 MG/DL (8.5-10.1); CARBON DIOXIDE 20 MMOL/L (21-32); CHLORIDE 103 MMOL/L (98-107); CHOLESTEROL 149 MG/DL (< 200); CREATININE 2.7 MG/DL (0.55-1.30); HDL CHOLESTEROL 22 MG/DL (40-60); POTASSIUM 3.6 MMOL/L (3.5-5.1); SODIUM 135 MMOL/L (136-145); TRIGLYCERIDES 255 MG/DL (30-150)
--- NOTE | 2020-03-21 06:29 | General Progress Note ---
Subjective Allergies: Coded Allergies: SULFA (SULFONAMIDE ANTIBIOTICS) (Unverified Allergy, Unknown, 02/20/20) SULFUR (Unverified Allergy, Unknown, 03/19/20) All Systems: reviewed and negative except above Subjective events noted interval notes reviewed Item Value Date Time Bedside Blood Glucose 162 mg/dl H 03/21/20 0546 Bedside Blood Glucose 174 mg/dl H 03/20/208 Bedside Blood Glucose 215 mg/dl H 03/20/20 1714 Bedside Blood Glucose 227 mg/dl H 03/20/20 1308 Bedside Blood Glucose 303 mg/dl H 03/20/20 0554 Objective Last 24 Hour Vital Signs Date Time Temp Pulse Resp B/P (MAP) Pulse Ox O2 Delivery O2 Flow Rate FiO2 03/21/20 04:00 Room Air 03/21/20 04:00 97.9 95 18 150/85 (106) 100 03/21/20 03:49 95 03/21/20 00:00 98.0 91 18 147/89 (108) 100 03/21/20 00:00 98 03/21/20 00:00 Room Air 03/20/20 23:52 98.1 03/20/20 20:14 99 03/20/20 20:00 98.1 95 18 146/85 (105) 99 03/20/20 20:00 Room Air 03/20/20 16:00 Room Air 03/20/20 16:00 98.3 104 20 140/87 (104) 99 03/20/20 15:27 101 03/20/20 12:00 97.7 98 18 139/84 (102) 98 98 03/20/20 12:00 Room Air 03/20/20 11:40 98 03/20/20 09:37 98 137/80 03/20/20 08:00 Room Air 03/20/20 08:00 98.1 98 20 137/80 (99) 100 03/20/20 07:39 105 Intake and Output 03/20/20 03/21/20 19:00 07:00 Intake Total 2380 ml 746 ml Output Total 1300 ml 975 ml Balance 1080 ml -229 ml Intake Oral 1680 ml IV Total 700 ml 746 ml Output Urine Total 1300 ml 975 ml # Voids 6 Laboratory Tests 03/20/20 20:21: POC Whole Blood Glucose [Pending] 03/21/20 04:30: White Blood Count 11.3H, Red Blood Count 3.32L, Hemoglobin 8.5L, Hematocrit 27.4L, Mean Corpuscular Volume 83, Mean Corpuscular Hemoglobin 25.6L, Mean Corpuscular Hemoglobin Concent 31.1L, Red Cell Distribution Width 13.5, Platelet Count 238, Mean Platelet Volume 6.1L, Neutrophils (%) (Auto) 69.0, Lymphocytes (%) (Auto) 17.3L, Monocytes (%) (Auto) 11.6H, Eosinophils (%) (Auto) 1.3, Basophils (%) (Auto) 0.9, Sodium Level 135L, Potassium Level 3.6, Chloride Level 103, Carbon Dioxide Level 20L, Anion Gap 12, Blood Urea Nitrogen 45H, C reatinine 2.7H, Estimat Glomerular Filtration Rate 29.7, Glucose Level 163#H, Hemoglobin A1c [Pending], Calcium Level 8.1L, Phosphorus Level 2.9, Magnesium Level 1.7L, Triglycerides Level 255H, Cholesterol Level 149, LDL Cholesterol 78, HDL Cholesterol 22L, Cholesterol/HDL Ratio 6.8H, Tacrolimus (Prograf) Level [Pending] 03/21/20 05:08: POC Whole Blood Glucose [Pending] Height (Feet): 5 Height (Inches): 10.00 Weight (Pounds): 214 General Appearance: no apparent distress Neck: normal alignment Cardiovascular: normal rate Respiratory/Chest: lungs clear Abdomen: normal bowel sounds Objective Current Medications Medications (Trade) Dose Ordered Sig/Angelo Route PRN Reason Start Time Stop Time Status Last Admin Dose Admin Acetaminophen/ Hydrocodone Bitart ([place] 5/325) 1 tab Q4H PRN ORAL Moderate Pain (Pain Scale 4-6) 03/20/20 23:15 03/27/20 23:14 03/20/20 23:22 Amlodipine Besylate (Norvasc) 5 mg DAILY ORAL 03/20/20 09:00 04/19/20 08:59 03/20/20 09:37 Cefepime HCl 1 gm/ Dextrose 50 ml @ 100 mls/hr Q24H IVPB 03/20/20 13:00 03/27/20 12:59 03/20/20 13:51 Clonidine HCl (Catapres Tab) 0.1 mg Q4H PRN ORAL sbp>170 03/20/20 08:15 06/18/20 08:14 Dextrose (Dextrose 50%) 25 ml Q30M PRN IV Hypoglycemia 03/20/20 11:00 06/18/20 10:59 Dextrose (Dextrose 50%) 50 ml Q30M PRN IV Hypoglycemia 03/20/20 11:00 06/18/20 10:59 Heparin Sodium (Porcine) (Heparin 5000 units/ml) 5,000 units EVERY 12 HOURS SUBQ 03/19/20 21:00 05/03/20 20:59 03/20/20 20:24 Insulin Aspart (NovoLOG) BEFORE MEALS AND HS SUBQ 03/19/20 21:00 06/17/20 20:59 03/21/20 05:46 Insulin Aspart (NovoLOG) 5 units NOVOTIAC SUBQ 03/21/20 06:30 06/18/20 11:49 Insulin Detemir (Levemir) 15 units Q24H SUBQ 03/21/20 12:00 06/18/20 11:59 Pantoprazole (Protonix) 40 mg DAILY ORAL 03/20/20 11:00 04/19/20 10:59 03/20/20 11:12 Sodium Chloride 1,000 ml @ 70 mls/hr [id number] IV 03/20/20 07:15 04/19/20 07:14 03/20/20 20:22 Tacrolimus (Prograf) 1 mg EVERY 12 HOURS ORAL 03/20/20 21:00 06/18/20 20:59 03/20/20 20:23 Assessment/Plan Problem List: (1) Noncompliance with medication regimen ICD Codes: Z91.14 - Patient's other noncompliance with medication regimen; E11.65 - Type 2 diabetes mellitus with hyperglycemia SNOMED: 255879252 (2) Anemia ICD Codes: D64.9 - Anemia, unspecified SNOMED: 887353337 (3) Hyperosmolar hyperglycemic state (HHS) ICD Codes: E11.00 - Type 2 diabetes mellitus with hyperosmolarity without nonketotic hyperglycemic-hyperosmolar coma (NKHHC); E11.65 - Type 2 diabetes mellitus with hyperglycemia SNOMED: 735654939 (4) Hyperglycemia ICD Codes: R73.9 - Hyperglycemia, unspecified; E11.65 - Type 2 diabetes mellitus with hyperglycemia SNOMED: 04626442 Assessment/Plan: Levemir 15 units daily Novolog 5 units ac tid continue Novolog sliding scale ac / hs Дмитрий Tamez MD Mar 21, 2020 06:29
[2020-03-21 08:00] VITALS: BP 164/85
[2020-03-21 08:43] LABS: % IRON SATURATION 11 % (15-50); IRON 13 ug/dL (50-175); TOTAL IRON BINDING CAPACITY 114 ug/dL (250-450)
[2020-03-21 08:57] LABS: FERRITIN 1671 NG/ML (8-388)
[2020-03-21] MEDS: Heparin 5000 units/ml inj SUBQ SCH ×2 (10:00→21:02)
--- NOTE | 2020-03-21 10:00 | General Progress Note ---
Subjective Constitutional: Denies: no symptoms, chills, diaphoresis, fever, malaise, weakness, other HEENT: Denies: no symptoms, eye pain, blurred vision, tearing, double vision, ear pain, ear discharge, nose pain, nose congestion, throat pain, throat swelling, mouth pain, mouth swelling, other Cardiovascular: Denies: no symptoms, chest pain, edema, irregular heart rate, lightheadedness, palpitations, syncope, other Respiratory: Denies: no symptoms, cough, orthopnea, shortness of breath, SOB with excertion, SOB at rest, sputum, stridor, wheezing, other Gastrointestinal/Abdominal: Reports: abdominal pain; Denies: no symptoms, abdomen distended, black stools, tarry stools, blood in stool, constipated, diarrhea, difficulty swallowing, nausea, poor appetite, poor fluid intake, rectal bleeding, vomiting, other Genitourinary: Denies: no symptoms, burning, discharge, frequency, flank pain, hematuria, incontinence, pain, urgency, other Neurologic/Psychiatric: Denies: no symptoms, anxiety, depressed, emotional problems, headache, numbness, paresthesia, pre-existing deficit, seizure, ti ngling, tremors, weakness, other Endocrine: Denies: no symptoms, excessive sweating, flushing, intolerance to cold, intolerance to heat, increased hunger, increased thirst, increased urine, unexplained weight gain, unexplained weight loss, other Hematologic/Lymphatic: Denies: no symptoms, anemia, easy bleeding, easy bruising, other Allergies: Coded Allergies: SULFA (SULFONAMIDE ANTIBIOTICS) (Unverified Allergy, Unknown, 02/20/20) SULFUR (Unverified Allergy, Unknown, 03/19/20) Subjective No acute events overnight. Patient continues to have episodic abdominal pain. No alleviating or exacerbating factors. Consistently throughout the day. Eating does not trigger nor worsen his symptoms. He is able to hold on all his food. No nausea or vomiting. Objective Last 24 Hour Vital Signs Date Time Temp Pulse Resp B/P (MAP) Pulse Ox O2 Delivery O2 Flow Rate FiO2 03/21/20 08:00 98.2 99 21 164/85 (111) 99 03/21/20 04:00 Room Air 03/21/20 04:00 97.9 95 18 150/85 (106) 100 03/21/20 03:49 95 03/21/20 00:00 98.0 91 18 147/89 (108) 100 03/21/20 00:00 98 03/21/20 00:00 Room Air 03/20/20 23:52 98.1 03/20/20 20:14 99 03/20/20 20:00 98.1 95 18 146/85 (105) 99 03/20/20 20:00 Room Air 03/20/20 16:00 Room Air 03/20/20 16:00 98.3 104 20 140/87 (104) 99 03/20/20 15:27 101 03/20/20 12:00 97.7 98 18 139/84 (102) 98 98 03/20/20 12:00 Room Air 03/20/20 11:40 98 Intake and Output 03/20/20 03/21/20 19:00 07:00 Intake Total 2380 ml 816 ml Output Total 1300 ml 975 ml Balance 1080 ml -159 ml Intake Oral 1680 ml IV Total 700 ml 816 ml Output Urine Total 1300 ml 975 ml # Voids 6 Laboratory Tests 03/20/20 20:21: POC Whole Blood Glucose [Pending] 03/21/20 04:30: White Blood Count 11.3H, Red Blood Count 3.32L, Hemoglobin 8.5L, Hematocrit 27.4L, Mean Corpuscular Volume 83, Mean Corpuscular Hemoglobin 25.6L, Mean Corpuscular Hemoglobin Concent 31.1L, Red Cell Distribution Width 13.5, Platelet Count 238, Mean Platelet Volume 6.1L, Neutrophils (%) (Auto) 69.0, Lymphocytes (%) (Auto) 17.3L, Monocytes (%) (Auto) 11.6H, Eosinophils (%) (Auto) 1.3, Basophils (%) (Auto) 0.9, Sodium Level 135L, Potassium Level 3.6, Chloride Level 103, Carbon Dioxide Level 20L, Anion Gap 12, Blood Urea Nitrogen 45H, Creatinine 2.7H, Estimat Glomerular Filtration Rate 29.7, Glucose Level 163#H, Hemoglobin A1c > 16.0H, Calcium Level 8.1L, Phosphorus Level 2.9, Magnesium Level 1.7L, Iron Level 13L, Total Iron Binding Capacity 114L, Percent Iron Saturation 11L, Unsaturated Iron Binding 101L, Ferritin 1671H, Triglycerides Level 255H, Cholesterol Level 149, LDL Cholesterol 78, HDL Cholesterol 22L, Cholesterol/HDL Ratio 6.8H, Tacrolimus (Prograf) Level [Pending] 03/21/20 05:08: POC Whole Blood Glucose [Pending] Height (Feet): 5 Height (Inches): 10.00 Weight (Pounds): 214 General Appearance: no apparent distress, alert, alert oriented x3 EENT: PERRL/EOMI Neck: non-tender, normal alignment Cardiovascular: normal rate, regular rhythm, no JVD Respiratory/Chest: lungs clear, normal breath sounds, respiratory distress Abdomen: normal bowel sounds, non tender, soft, no organomegaly, no mass Extremities: normal range of motion Edema: no edema noted Arm (L), no edema noted Arm (R), no edema noted Leg (L), no edema noted Leg (R), no edema noted Pedal (L), no edema noted Pedal (R), no edema noted 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 A: # Hyperglycemia/HHS # Cystic abdominal pain 2/2 esophagitis versus gastroparesis versus PUD versus malignancy dyspepsia # Atypical chest pain with ACS rule outtropes negative x3 # Sepsis UTI # Acute renal failure secondary to prerenal azotemia versus sepsis ATN # History of renal transplant in 1997 on immunosuppressants # UTI # Pseudohyponatremia secondary to hyperglycemia # Diabetes Mellitus type IIuncontrolled # Nausea/Vomiting # History of DVT # Normocytic anemia secondary to iron deficiency anemia and CKD P: Trial of PPI and Mylanta did not improve abdominal pain, will have him evaluated by GI as CT scan noted to have possible esophagitis versus malignancy Continue Levemir at 15 units and NovoLog 15 units Premeal Aggressive insulin sliding scale, reassessment of insulin requirements daily Blood glucose goal 140-180 A1c: > 16 Continue IVF Continue cefepime per ID Urine cultures and blood cultures preliminary reading strep Restarted Prograf per nephrology Monitor renal function and electrolytes Follow-up renal ultrasound Iron panel noted to have all decreased plus low ferritin likely anemia of chronic kidney disease Heme-onc consult Dr. Davis, recs appreciated Gastroenterology consult Dr. Vick, recs appreciated - Endocrinology consult Dr. Tamez, recs appreciated - Cardiology consult Dr. Martinez, recs appreciated - Nephro consult Dr. Gomez, recs appreciated - ID consult Dr. Murphy, recs appreciated Diet: low carb DVT ppx: heparin subQ GI: PPI Code status: Full Dispo: Evaluation from GI for cystic abdominal pain Time spent on this encounter was 41 minutes which included 22 minutes of counseling and care coordination. I discussed with the nurse at bedside. Time of note may not reflect time patient was seen. Poli Hendricks D.O Mar 21, 2020 10:00
[2020-03-21] MEDS: Docusate 100mg cap ORAL SCH ×2 (11:17→18:01)
--- NOTE | 2020-03-21 11:44 | Consultation ---
DATE OF CONSULTATION: 03/21/2020 GASTROENTEROLOGY CONSULTATION CONSULTING PHYSICIAN: Jaspreet Vick MD. CHIEF COMPLAINT: Possible esophagitis, iron deficiency anemia. HISTORY OF PRESENT ILLNESS: This is a very pleasant unfortunate 55-year-old male with past medical history of renal transplant, admitted to the hospital with nausea and vomiting sign and symptoms highly suggestive of urinary tract infection and urosepsis. In the workup, the patient had a CT of the abdomen and pelvis showed evidence of questionable esophagitis and esophageal mass, so GI consultation was requested for evaluation. PAST MEDICAL HISTORY: Significant for, 1. History of diabetes. 2. History of renal transplant. 3. Hypertension. 4. History of DVT. 5. Anemia. ALLERGIES: Sulfa. MEDICATIONS: Please see medication reconciliation list. SOCIAL HISTORY: The patient denies any tobacco, alcohol, or drug abuse. FAMILY HISTORY: Noncontributory. REVIEW OF SYSTEMS: A 10-point review of systems performed and pertinent positives dictated in HPI. PHYSICAL EXAMINATION: VITAL SIGNS: Temperature is 98.2, pulse 99, respirations 21, blood pressure 164/85. HEENT: Normocephalic, atraumatic. Mild pale conjunctivae. NECK: Supple. No evidence of obvious lymphadenopathy. CARDIOVASCULAR: Regular rate and rhythm. Plus S1-S2. LUNGS: Decreased breath sounds bilaterally, right more than left. ABDOMEN: Soft, nontender. No rebound. No guarding. No peritoneal sign. EXTREMITIES: No cyanosis, no clubbing, no edema. LABORATORY DATA: White count 11.3, hemoglobin 8.5, hematocrit 27, and platelet count 238,000. Iron saturation 11%. ASSESSMENT: 1. Iron deficiency anemia. 2. Questionable esophagitis versus esophageal mass. 3. Urinary tract infection and urosepsis. 4. Renal insufficiency. 5. Diabetes. 6. History of kidney transplant. PLAN: 1. Start the patient on IV iron, add Protonix. 2. Discussed with the patient regarding endoscopy for tomorrow and he agreed, so we will schedule him for endoscopy for tomorrow. Jaspreet Vick M.D. DR: LESLEY JOB#: [id number] CC:
[2020-03-21] MEDS: Levemir Flexpen SUBQ SCH (11:59)
[2020-03-21 12:00] VITALS: BP 150/80
--- NOTE | 2020-03-21 13:00 | Cardiac Electrophysiology PN ---
Assessment/Plan Assessment/Plan 1. Shortness of breath. EKG shows lateral T-wave inversion. Ruled out for HI Patient's troponins are negative x 3. The patient's D-dimer is elevated. Ventilation/perfusion scan showed low probability for PE 2. HTN. Avoid ACEI or ARB for renal failure. Added Norvasc 5 po daily and prn Clonidine Avoid beta-rowan in view of uncontrolled diabetes. 3. Hyponatremia, likely due to the patient's blood glucose of 620.On NS 70 cc/hr Na 130s now 4. Uncontrolled diabetes.On NS at 70cc/hr 5. Acute renal failure. BUN of 70 and creatinine of 4.1. Cr Improved to 2.7 DW RN Subjective Subjective Alert in NAD. No CP or SOB.On NS at 75 cc/hr Objective Last 24 Hour Vital Signs Date Time Temp Pulse Resp B/P (MAP) Pulse Ox O2 Delivery O2 Flow Rate FiO2 03/21/20 12:00 98.6 104 20 150/80 (103) 98 03/21/20 12:00 Room Air 03/21/20 09:51 99 164/85 03/21/20 08:00 Room Air 03/21/20 08:00 98.2 99 21 164/85 (111) 99 03/21/20 07:50 101 03/21/20 04:00 Room Air 03/21/20 04:00 97.9 95 18 150/85 (106) 100 03/21/20 03:49 95 03/21/20 00:00 98.0 91 18 147/89 (108) 100 03/21/20 00:00 98 03/21/20 00:00 Room Air 03/20/20 23:52 98.1 03/20/20 20:14 99 03/20/20 20:00 98.1 95 18 146/85 (105) 99 03/20/20 20:00 Room Air 03/20/20 16:00 Room Air 03/20/20 16:00 98.3 104 20 140/87 (104) 99 03/20/20 15:27 101 Intake and Output 03/20/20 03/21/20 19:00 07:00 Intake Total 2380 ml 816 ml Output Total 1300 ml 975 ml Balance 1080 ml -159 ml Intake Oral 1680 ml IV Total 700 ml 816 ml Output Urine Total 1300 ml 975 ml # Voids 6 Laboratory Tests Test 03/20/20 20:21 03/21/20 04:30 03/21/20 05:08 03/21/20 11:26 POC Whole Blood Glucose Pending Pending 236 MG/DL (74-106) H White Blood Count 11.3 K/UL (4.8-10.8) H Red Blood Count 3.32 M/UL (4.70-6.10) L Hemoglobin 8.5 G/DL (14.2-18.0) L Hematocrit 27.4 % (42.0-52.0) L Mean Corpuscular Volume 83 FL (80-99) Mean Corpuscular Hemoglobin 25.6 PG (27.0-31.0) L Mean Corpuscular Hemoglobin Concent 31.1 G/DL (32.0-36.0) L Red Cell Distribution Width 13.5 % (11.6-14.8) Platelet Count 238 K/UL (150-450) Mean Platelet Volume 6.1 FL (6.5-10.1) L Neutrophils (%) (Auto) 69.0 % (45.0-75.0) Lymphocytes (%) (Auto) 17.3 % (20.0-45.0) L Monocytes (%) (Auto) 11.6 % (1.0-10.0) H Eosinophils (%) (Auto) 1.3 % (0.0-3.0) Basophils (%) (Auto) 0.9 % (0.0-2.0) Sodium Level 135 MMOL/L (136-145) L Potassium Level 3.6 MMOL/L (3.5-5.1) Chloride Level 103 MMOL/L (98-107) Carbon Dioxide Level 20 MMOL/L (21-32) L Anion Gap 12 mmol/L (5-15) Blood Urea Nitrogen 45 mg/dL (7-18) H Creatinine 2.7 MG/DL (0.55-1.30) H Estimat Glomerular Filtration Rate 29.7 mL/min (>60) Glucose Level 163 MG/DL (74-106) #H Hemoglobin A1c > 16.0 % (4.3-6.0) H Calcium Level 8.1 MG/DL (8.5-10.1) L Phosphorus Level 2.9 MG/DL (2.5-4.9) Magnesium Level 1.7 MG/DL (1.8-2.4) L Iron Level 13 ug/dL (50-175) L Total Iron Binding Capacity 114 ug/dL (250-450) L Percent Iron Saturation 11 % (15-50) L Unsaturated Iron Binding 101 ug/dL (112-346) L Ferritin 1671 NG/ML (8-388) H Triglycerides Level 255 MG/DL (30-150) H Cholesterol Level 149 MG/DL (< 200) LDL Cholesterol 78 mg/dL (<100) HDL Cholesterol 22 MG/DL (40-60) L Cholesterol/HDL Ratio 6.8 (3.3-4.4) H Tacrolimus (Prograf) Level Pending Microbiology Date/Time Source Procedure Growth Status 03/19/20 12:55 Urine,Clean Catch Urine Culture - Preliminary Strep Species, Gamma-Hemolytic Resulted 03/19/20 12:55 Nasopharynx SARS-CoV-2 RdRp Gene Assay - Final Complete 03/19/20 12:31 Blood Blood Culture - Preliminary Strep Species, Gamma-Hemolytic Resulted 03/19/20 12:15 Blood Blood Culture - Preliminary Strep Species, Gamma-Hemolytic Resulted Objective HEAD AND NECK: Shows no JVD. LUNGS: Decreased breath sounds. CARDIOVASCULAR: Shows regular S1 and S2 with no gallop. ABDOMEN: Soft. EXTREMITIES: No pitting edema. Ivan Martinez MD Mar 21, 2020 13:00
--- NOTE | 2020-03-21 13:09 | Diagnostic Imaging Report ---
Indication:Leg pain and swelling Technique: Grayscale and duplex Doppler imaging of the veins in both lower extremities performed in real time utilizing compression and augmentation. Comparison: None Findings: Duplex Doppler interrogation of the veins in both lower extremity is performed from the common femoral vein to the popliteal vein. Normal venous compressibility demonstrated throughout. No thrombus identified. Waveform analysis shows good respiratory phasicity and augmentation. Imaged calf veins are patent. IMPRESSION: No evidence of deep venous thrombosis involving the lower extremities. This corresponds with the preliminary report of the eeg technologist.
--- NOTE | 2020-03-21 13:33 | Nephrology Progress Note ---
Assessment/Plan Plan #DAHIANA on chronic transplant nephropathy- s/p renal tx at [facility] in 1995- #severe hyperglycemia- HHS #pseudo- Hyponatremia in the setting of HHS #UTI #DM- hyperglycemia #HTN #HLD #h/o DVT - patient unsure of doses of home immunosuppressants - for now resume prograf 1mg BID - check daily prograf level - continue NS at 70 cc/hr - urine chem - amlodipine 5mg daily - renal tx us - on cefepime - follow cx - BG control - monitor UOP - monitor weights time spent 65 min Subjective ROS Limited/Unobtainable: No Constitutional: Reports: weakness HEENT: Denies: no symptoms, eye pain, blurred vision, tearing, double vision, ear pain, ear discharge, nose pain, nose congestion, throat pain, throat swelling, mouth pain, mouth swelling, other Genitourinary: Denies: no symptoms, burning, discharge, frequency, flank pain, hematuria, incontinence, pain, urgency, other Neurologic/Psychiatric: Denies: no symptoms, anxiety, depressed, emotional problems, headache, numbness, paresthesia, pre-existing deficit, seizure, tingling, tremors, weakness, other Subjective abd pain better Cr stable Objective Objective Last 24 Hour Vital Signs Date Time Temp Pulse Resp B/P (MAP) Pulse Ox O2 Delivery O2 Flow Rate FiO2 03/21/20 12:00 98.6 104 20 150/80 (103) 98 03/21/20 12:00 Room Air 03/21/20 09:51 99 164/85 03/21/20 08:00 Room Air 03/21/20 08:00 98.2 99 21 164/85 (111) 99 03/21/20 07:50 101 03/21/20 04:00 Room Air 03/21/20 04:00 97.9 95 18 150/85 (106) 100 03/21/20 03:49 95 03/21/20 00:00 98.0 91 18 147/89 (108) 100 03/21/20 00:00 98 03/21/20 00:00 Room Air 03/20/20 23:52 98.1 03/20/20 20:14 99 03/20/20 20:00 98.1 95 18 146/85 (105) 99 03/20/20 20:00 Room Air 03/20/20 16:00 Room Air 03/20/20 16:00 98.3 104 20 140/87 (104) 99 03/20/20 15:27 101 Intake and Output 03/20/20 03/21/20 19:00 07:00 Intake Total 2380 ml 816 ml Output Total 1300 ml 975 ml Balance 1080 ml -159 ml Intake Oral 1680 ml IV Total 700 ml 816 ml Output Urine Total 1300 ml 975 ml # Voids 6 Laboratory Tests 03/20/20 20:21: POC Whole Blood Glucose [Pending] 03/21/20 04:30: White Blood Count 11.3H, Red Blood Count 3.32L, Hemoglobin 8.5L, Hematocrit 27.4L, Mean Corpuscular Volume 83, Mean Corpuscular Hemoglobin 25.6L, Mean Corpuscular Hemoglobin Concent 31.1L, Red Cell Distribution Width 13.5, Platelet Count 238, Mean Platelet Volume 6.1L, Neutrophils (%) (Auto) 69.0, Lymphocytes (%) (Auto) 17.3L, Monocytes (%) (Auto) 11.6H, Eosinophils (%) (Auto) 1.3, Basophils (%) (Auto) 0.9, Sodium Level 135L, Potassium Level 3.6, Chloride Level 103, Carbon Dioxide Level 20L, Anion Gap 12, Blood Urea Nitrogen 45H, Creatinine 2.7H, Estimat Glomerular Filtration Rate 29.7, Glucose Level 163#H, Hemoglobin A1c > 16.0H, Calcium Level 8.1L, Phosphorus Level 2.9, Magnesium Level 1.7L, Iron Level 13L, Total Iron Binding Capacity 114L, Percent Iron Satu ration 11L, Unsaturated Iron Binding 101L, Ferritin 1671H, Triglycerides Level 255H, Cholesterol Level 149, LDL Cholesterol 78, HDL Cholesterol 22L, Ch olesterol/HDL Ratio 6.8H, Tacrolimus (Prograf) Level [Pending] 03/21/20 05:08: POC Whole Blood Glucose [Pending] 03/21/20 11:26: POC Whole Blood Glucose 236H Height (Feet): 5 Height (Inches): 10.00 Weight (Pounds): 214 General Appearance: no apparent distress EENT: PERRL/EOMI, normal ENT inspection Neck: non-tender Cardiovascular: normal peripheral pulses, normal rate, regular rhythm Respiratory/Chest: chest wall non-tender, lungs clear Abdomen: normal bowel sounds, non tender Extremities: normal range of motion, non-tender Neurologic: alert, oriented x 3, responsive Frandy Gomez M.D. Mar 21, 2020 13:33
--- NOTE | 2020-03-21 14:59 | Infectious Diseases Prog Note ---
Assessment/Plan Assessment/Plan ASSESSMENT AND PLAN: 1. streptococcus bacteremia/uti - gamma-hemolytic, ? endocarditis, sepsis, leukocytosis - vancomycin and ceftriaxone - await final cultures and sensitivities - likely will need ANTONIO, TTE - no vegetations mentioned - monitor labs, leukocytosis improved - surveillance blood cultures - d/w microbiology 2. Questionable community-acquired pneumonia, but more likely this is atelectasis. The patient has no fevers, no secondary respiratory symptoms. 3. COVID testing is negative. 4. Hyperglycemia and DKA. 5. Diabetes. 6. Hypertension. 7. Acute renal failure. 8. IV fluids. 9. Renal transplant. 10. Anemia. 11. History of DVT. 12. Allergies to sulfa drugs. 13. Social history is negative. 14. Family history is noncontributory. (14) 15. MAR is noted. 16. Case discussed with RN. 17. Continue treatment per primary consultants. 18. Chest pain. Workup per Cardiology. (18) Subjective Constitutional: Reports: fatigue HEENT: Denies: congestion Respiratory: Denies: shortness of breath Cardiovascular: Denies: chest pain Gastrointestinal/Abdominal: Denies: nausea, vomiting, diarrhea Genitourinary: Reports: other - no reynolds Neurologic: Denies: headache Psychiatric: Denies: depression Skin: Denies: rash Hematologic: Denies: bleeding Musculoskeletal: Denies: pain Allergies: Coded Allergies: SULFA (SULFONAMIDE ANTIBIOTICS) (Unverified Allergy, Unknown, 02/20/20) SULFUR (Unverified Allergy, Unknown, 03/19/20) Objective Last 24 Hour Vital Signs Date Time Temp Pulse Resp B/P (MAP) Pulse Ox O2 Delivery O2 Flow Rate FiO2 03/21/20 12:00 98.6 104 20 150/80 (103) 98 03/21/20 12:00 Room Air 03/21/20 09:51 99 164/85 03/21/20 08:00 Room Air 03/21/20 08:00 98.2 99 21 164/85 (111) 99 03/21/20 07:50 101 03/21/20 04:00 Room Air 03/21/20 04:00 97.9 95 18 150/85 (106) 100 03/21/20 03:49 95 03/21/20 00:00 98.0 91 18 147/89 (108) 100 03/21/20 00:00 98 03/21/20 00:00 Room Air 03/20/20 23:52 98.1 03/20/20 20:14 99 03/20/20 20:00 98.1 95 18 146/85 (105) 99 03/20/20 20:00 Room Air 03/20/20 16:00 Room Air 03/20/20 16:00 98.3 104 20 140/87 (104) 99 03/20/20 15:27 101 Height (Feet): 5 Height (Inches): 10.00 Weight (Pounds): 214 General Appearance: no acute distress HEENT: normocephalic, atraumatic, anicteric Respiratory/Chest: lungs clear, normal breath sounds, no respiratory distress Cardiovascular: normal rate, regular rhythm, no gallop/murmur, no JVD Abdomen: normal bowel sounds, soft, non tender, no organomegaly, non distended Genitourinary: other - no reynolds Extremities: no cyanosis Skin: no rash Neurologic/Psychiatric: psychologist chief II-XII grossly normal, alert, oriented x 3, responsive Lymphatic: no neck adenopathy Musculoskeletal: no effusion CT abdomen and pelvis: IMPRESSION: 1. Mild circumferential wall thickening in the distal esophagus. This raises possibility of esophagitis and cannot exclude esophageal malignancy. If there is continued clinical concern, may consider further evaluation with upper endoscopy. 2. Transplant kidney in the right pelvis, without hydronephrosis or calcified stones. 3. 2.9 x 2.3 x 2.0 cm nodular soft tissue density along the lateral margin of the renal transplant (axial series image 126, coronal series image 34). This is indeterminate and may represent an exophytic renal cyst or solid lesion. Recommend nonemergent follow-up evaluation with ultrasound of the transplant kidney. 4. The absentee-shawnee kidneys are atrophic, with subcentimeter nonobstructive stones and scattered small cortical cysts. 5. Trace free fluid in the pelvis. 6. Incidental note of 2.8 x 2.6 x 1.9 cm thin-walled cyst versus bleb in the dependent right lung base. 7. Mild dependent atelectasis in the right lung base. 8. Coronary artery calcifications. 9. Midline fat-containing ventral abdominal wall hernia just above the umbilicus, with hernia sac measuring 4.8 x 4.4 x 4.4 cm. 10. Incidental note of grade 1 anterolisthesis of L4 relative to L5 with 4 mm offset. No associated spondylolysis. Chest x-ray - 03/19/20 - Procedure: XRAY Chest 1v Indication: Reason For Exam: PAIN Technique: Single AP view of the chest. Comparison: Chest radiograph dated 02/20/2020 Findings: Cardiomediastinal silhouette is unchanged in appearance. There are diffuse right greater than left bilateral interstitial opacities, which are not seen on prior examination. No pneumothorax. No pleural effusion. No acute osseous abnormality. IMPRESSION: Bilateral interstitial opacities, the differential for which includes atelectasis in the setting of infectious/inflammatory airways disease or pneumonia, including atypical/viral etiologies. Microbiology Date/Time Source Procedure Growth Status 03/19/20 12:55 Urine,Clean Catch Urine Culture - Preliminary Strep Species, Gamma-Hemolytic Resulted 03/19/20 12:55 Nasopharynx SARS-CoV-2 RdRp Gene Assay - Final Complete 03/19/20 12:31 Blood Blood Culture - Preliminary Strep Species, Gamma-Hemolytic Resulted 03/19/20 12:15 Blood Blood Culture - Preliminary Strep Species, Gamma-Hemolytic Resulted Laboratory Tests Test 03/20/20 20:21 03/21/20 04:30 03/21/20 05:08 03/21/20 11:26 POC Whole Blood Glucose Pending Pending 236 MG/DL (74-106) H White Blood Count 11.3 K/UL (4.8-10.8) H Red Blood Count 3.32 M/UL (4.70-6.10) L Hemoglobin 8.5 G/DL (14.2-18.0) L Hematocrit 27.4 % (42.0-52.0) L Mean Corpuscular Volume 83 FL (80-99) Mean Corpuscular Hemoglobin 25.6 PG (27.0-31.0) L Mean Corpuscular Hemoglobin Concent 31.1 G/DL (32.0-36.0) L Red Cell Distribution Width 13.5 % (11.6-14.8) Platelet Count 238 K/UL (150-450) Mean Platelet Volume 6.1 FL (6.5-10.1) L Neutrophils (%) (Auto) 69.0 % (45.0-75.0) Lymphocytes (%) (Auto) 17.3 % (20.0-45.0) L Monocytes (%) (Auto) 11.6 % (1.0-10.0) H Eosinophils (%) (Auto) 1.3 % (0.0-3.0) Basophils (%) (Auto) 0.9 % (0.0-2.0) Sodium Level 135 MMOL/L (136-145) L Potassium Level 3.6 MMOL/L (3.5-5.1) Chloride Level 103 MMOL/L (98-107) Carbon Dioxide Level 20 MMOL/L (21-32) L Anion Gap 12 mmol/L (5-15) Blood Urea Nitrogen 45 mg/dL (7-18) H Creatinine 2.7 MG/DL (0.55-1.30) H Estimat Glomerular Filtration Rate 29.7 mL/min (>60) Glucose Level 163 MG/DL (74-106) #H Hemoglobin A1c > 16.0 % (4.3-6.0) H Calcium Level 8.1 MG/DL (8.5-10.1) L Phosphorus Level 2.9 MG/DL (2.5-4.9) Magnesium Level 1.7 MG/DL (1.8-2.4) L Iron Level 13 ug/dL (50-175) L Total Iron Binding Capacity 114 ug/dL (250-450) L Percent Iron Saturation 11 % (15-50) L Unsaturated Iron Binding 101 ug/dL (112-346) L Ferritin 1671 NG/ML (8-388) H Triglycerides Level 255 MG/DL (30-150) H Cholesterol Level 149 MG/DL (< 200) LDL Cholesterol 78 mg/dL (<100) HDL Cholesterol 22 MG/DL (40-60) L Cholesterol/HDL Ratio 6.8 (3.3-4.4) H Tacrolimus (Prograf) Level Pending Current Medications Medications (Trade) Dose Ordered Sig/Angelo Route PRN Reason Start Time Stop Time Status Last Admin Dose Admin Acetaminophen/ Hydrocodone Bitart ([place] 5/325) 1 tab Q4H PRN ORAL Moderate Pain (Pain Scale 4-6) 03/20/20 23:15 03/27/20 23:14 03/20/20 23:22 Amlodipine Besylate (Norvasc) 5 mg DAILY ORAL 03/20/20 09:00 04/19/20 08:59 03/21/20 09:51 Cefepime HCl 1 gm/ Dextrose 50 ml @ 100 mls/hr Q24H IVPB 03/20/20 13:00 03/27/20 12:59 03/21/20 14:23 Clonidine HCl (Catapres Tab) 0.1 mg Q4H PRN ORAL sbp>170 03/20/20 08:15 06/18/20 08:14 Dextrose (Dextrose 50%) 25 ml Q30M PRN IV Hypoglycemia 03/20/20 11:00 06/18/20 10:59 Dextrose (Dextrose 50%) 50 ml Q30M PRN IV Hypoglycemia 03/20/20 11:00 06/18/20 10:59 Docusate Sodium (Colace) 100 mg TWICE A DAY ORAL 03/21/20 10:30 04/20/20 10:29 03/21/20 11:17 Heparin Sodium (Porcine) (Heparin 5000 units/ml) 5,000 units EVERY 12 HOURS SUBQ 03/19/20 21:00 05/03/20 20:59 03/21/20 10:00 Insulin Aspart (NovoLOG) BEFORE MEALS AND HS SUBQ 03/19/20 21:00 06/17/20 20:59 03/21/20 11:58 Insulin Aspart (NovoLOG) 5 units NOVOTIAC SUBQ 03/21/20 06:30 06/18/20 11:49 Insulin Detemir (Levemir) 15 units Q24H SUBQ 03/21/20 12:00 06/18/20 11:59 03/21/20 11:59 Pantoprazole (Protonix) 40 mg DAILY ORAL 03/20/20 11:00 04/19/20 10:59 03/21/20 09:51 Sodium Chloride 1,000 ml @ 70 mls/hr [id number] IV 03/20/20 07:15 03/22/20 07:00 03/21/20 12:38 Tacrolimus (Prograf) 1 mg EVERY 12 HOURS ORAL 03/20/20 21:00 06/18/20 20:59 03/21/20 09:51 Norman Smiley MD Mar 21, 2020 14:59
[2020-03-21 16:00] VITALS: BP 135/81
[2020-03-21] MEDS ORDERED: Vancomycin 1.25gm Premix q24h IVPB SCH (16:00)
[2020-03-21] MEDS: HYDROcodone/Acetamin 5/325 tab ORAL PRN (16:14)
[2020-03-21] MEDS ORDERED: Tubing IV Secondary IV ONE (18:36)
[2020-03-21 20:00] VITALS: BP 143/88
[2020-03-21] MEDS ORDERED: Iron Sucrose 100 MG in NS 55 ML IVPB SCH ×4 (21:00)
[2020-03-22] VITALS: BP 139/79
[2020-03-22 04:00] VITALS: BP 141/88
[2020-03-22] MEDS: HYDROcodone/Acetamin 5/325 tab ORAL PRN ×2 (04:45→13:20)
[2020-03-22 06:00] LABS: HEMOGLOBIN 8.9 G/DL (14.2-18.0); MEAN CORPUSCULAR VOLUME 83 FL (80-99); PLATELET COUNT 279 K/UL (150-450); RED BLOOD COUNT 3.48 M/UL (4.70-6.10); RED CELL DISTRIBUTION WIDTH 13.2 % (11.6-14.8); WHITE BLOOD COUNT 9.1 K/UL (4.8-10.8)
[2020-03-22] MEDS: NovoLOG Insulin Flexpen SUBQ SCH ×6 (06:16→16:13)
--- NOTE | 2020-03-22 06:27 | General Progress Note ---
Subjective Allergies: Coded Allergies: SULFA (SULFONAMIDE ANTIBIOTICS) (Unverified Allergy, Unknown, 02/20/20) SULFUR (Unverified Allergy, Unknown, 03/19/20) All Systems: reviewed and negative except above Subjective events noted interval notes reviewed glucose values improved Item Value Date Time Bedside Blood Glucose 134 mg/dl H 03/22/20 0617 Bedside Blood Glucose 167 mg/dl H 03/21/20 2103 Bedside Blood Glucose 184 mg/dl H 03/21/20 1817 Bedside Blood Glucose 236 mg/dl H 03/21/20 1159 Bedside Blood Glucose 162 mg/dl H 03/21/20 0546 Objective Last 24 Hour Vital Signs Date Time Temp Pulse Resp B/P (MAP) Pulse Ox O2 Delivery O2 Flow Rate FiO2 03/22/20 05:15 98.5 03/22/20 04:00 98.4 99 20 141/88 (105) 99 03/22/20 04:00 Room Air 03/22/20 04:00 96 03/22/20 00:00 95 03/22/20 00:00 Room Air 03/22/20 00:00 98.7 95 20 139/79 (99) 98 03/21/20 20:00 Room Air 03/21/20 20:00 94 03/21/20 20:00 98.0 90 20 143/88 (106) 98 03/21/20 16:44 98.6 03/21/20 16:00 Room Air 03/21/20 16:00 98.2 99 20 135/81 (99) 99 03/21/20 15:22 94 03/21/20 12:00 98.6 104 20 150/80 (103) 98 03/21/20 12:00 Room Air 03/21/20 11:53 107 03/21/20 09:51 99 164/85 03/21/20 08:00 Room Air 03/21/20 08:00 98.2 99 21 164/85 (111) 99 03/21/20 07:50 101 Intake and Output 03/21/20 03/22/20 19:00 07:00 Intake Total 1475 ml 1070 ml Output Total 770 ml 900 ml Balance 705 ml 170 ml Intake Oral 985 ml IV Total 490 ml 1070 ml Output Urine Total 770 ml 900 ml Laboratory Tests 03/21/20 11:26: POC Whole Blood Glucose 236H 03/21/20 16:17: POC Whole Blood Glucose 179H 03/21/20 18:04: POC Whole Blood Glucose 184H 03/21/20 21:00: POC Whole Blood Glucose [Pending] 03/22/20 04:55: White Blood Count 9.1, Red Blood Count 3.48L, Hemoglobin 8.9L, Hematocrit 29.0L, Mean Corpuscular Volume 83, Mean Corpuscular Hemoglobin 25.5L, Mean Corpuscular Hemoglobin Concent 30.6L, Red Cell Distribution Width 13.2, Platelet Count 279, Mean Platelet Volume 6.0L, Neutrophils (%) (Auto) , Lymphocytes (%) (Auto) , Monocytes (%) (Auto) , Eosinophils (%) (Auto) , Basophils (%) (Auto) , Neutrophils % (Manual) [Pending], Lymphocytes % (Manual) [Pending], Platelet Estimate [Pending], Platelet Morphology [Pending], Sodium Level [Pending], Potassium Level [Pending], Chloride Level [Pending], Carbon Dioxide Level [Pending], Blood Urea Nitrogen [Pending], Creatinine [Pending], Estimat Glomerular Filtration Rate [Pending], Glucose Level [Pending], Calcium Level [Pending], Magnesium Level [Pending], Total Bilirubin [Pending], Aspartate Amino Transf (AST/SGOT) [Pending], Alanine Aminotransferase (ALT/SGPT) [Pending], Alkaline Phosphatase [Pending], Total Protein [Pending], Albumin [Pending], Globulin [Pending], Carcinoembryonic Antigen [Pending], Vitamin B12 Level [Pending], Folate [Pending], Thyroid Stimulating Hormone (TSH) [Pending] 03/22/20 06:16: POC Whole Blood Glucose 134H Height (Feet): 5 Height (Inches): 10.00 Weight (Pounds): 214 General Appearance: no apparent distress Neck: normal alignment Cardiovascular: normal rate Respiratory/Chest: lungs clear Abdomen: normal bowel sounds Objective Current Medications Medications (Trade) Dose Ordered Sig/Angelo Route PRN Reason Start Time Stop Time Status Last Admin Dose Admin Acetaminophen/ Hydrocodone Bitart ([place] 5/325) 1 tab Q4H PRN ORAL Moderate Pain (Pain Scale 4-6) 03/20/20 23:15 03/27/20 23:14 03/22/20 04:45 Amlodipine Besylate (Norvasc) 5 mg DAILY ORAL 03/20/20 09:00 04/19/20 08:59 03/21/20 09:51 Ceftriaxone Sodium 2 gm/ Dextrose 100 ml @ 200 mls/hr Q24HRS IVPB 03/21/20 17:00 03/28/20 16:59 03/21/20 17:45 Clonidine HCl (Catapres Tab) 0.1 mg Q4H PRN ORAL sbp>170 03/20/20 08:15 06/18/20 08:14 Dextrose (Dextrose 50%) 25 ml Q30M PRN IV Hypoglycemia 03/20/20 11:00 06/18/20 10:59 Dextrose (Dextrose 50%) 50 ml Q30M PRN IV Hypoglycemia 03/20/20 11:00 06/18/20 10:59 Docusate Sodium (Colace) 100 mg TWICE A DAY ORAL 03/21/20 10:30 04/20/20 10:29 03/21/20 18:01 Heparin Sodium (Porcine) (Heparin 5000 units/ml) 5,000 units EVERY 12 HOURS SUBQ 03/19/20 21:00 05/03/20 20:59 03/21/20 21:02 Insulin Aspart (NovoLOG) BEFORE MEALS AND HS SUBQ 03/19/20 21:00 06/17/20 20:59 03/21/20 21:03 Insulin Aspart (NovoLOG) 5 units NOVOTIAC SUBQ 03/21/20 06:30 06/18/20 11:49 03/21/20 18:17 Insulin Detemir (Levemir) 15 units Q24H SUBQ 03/21/20 12:00 06/18/20 11:59 03/21/20 11:59 Linezolid 300 ml @ 300 mls/hr Q12HR IVPB 03/21/20 21:00 03/28/20 20:59 03/21/20 21:00 Pantoprazole (Protonix) 40 mg DAILY ORAL 03/20/20 11:00 04/19/20 10:59 03/21/20 09:51 Sodium Chloride 1,000 ml @ 70 mls/hr [id number] IV 03/20/20 07:15 03/22/20 07:00 03/22/20 01:55 Tacrolimus (Prograf) 1 mg EVERY 12 HOURS ORAL 03/20/20 21:00 06/18/20 20:59 03/21/20 21:01 Assessment/Plan Problem List: (1) Noncompliance with medication regimen ICD Codes: Z91.14 - Patient's other noncompliance with medication regimen; E11.65 - Type 2 diabetes mellitus with hyperglycemia SNOMED: 882249713 (2) Anemia ICD Codes: D64.9 - Anemia, unspecified SNOMED: 245005661 (3) Hyperosmolar hyperglycemic state (HHS) ICD Codes: E11.00 - Type 2 diabetes mellitus with hyperosmolarity without nonketotic hyperglycemic-hyperosmolar coma (NKHHC); E11.65 - Type 2 diabetes mellitus with hyperglycemia SNOMED: 280146897 (4) Hyperglycemia ICD Codes: R73.9 - Hyperglycemia, unspecified; E11.65 - Type 2 diabetes mellitus with hyperglycemia SNOMED: 04314459 Assessment/Plan: continue Levemir 15 units daily continue Novolog 5 units ac tid continue Novolog sliding scale ac / hs he will stay on insulin after discharge TSH is pending A1c is extremely high Дмитрий Tamez MD Mar 22, 2020 06:27
[2020-03-22 06:31] LABS: ALBUMIN 1.8 G/DL (3.4-5.0); ALBUMIN/GLOBULIN RATIO 0.4 (1.0-2.7); BILIRUBIN,TOTAL 0.5 MG/DL (0.2-1.0); CREATININE 2.2 MG/DL (0.55-1.30); POTASSIUM 3.3 MMOL/L (3.5-5.1)
[2020-03-22 08:00] VITALS: BP 132/85
--- NOTE | 2020-03-22 10:26 | Nephrology Progress Note ---
Assessment/Plan Plan #DAHIANA on chronic transplant nephropathy- s/p renal tx at [facility] in 1995- #severe hyperglycemia- HHS #pseudo- Hyponatremia in the setting of HHS #UTI #DM- hyperglycemia #HTN #HLD #h/o DVT - patient unsure of doses of home immunosuppressants - for now resume prograf 1mg BID - check daily prograf level - continue NS at 70 cc/hr - urine chem - amlodipine 5mg daily - renal tx us - on cefepime - follow cx - BG control - monitor UOP - monitor weights time spent 65 min Subjective ROS Limited/Unobtainable: No Constitutional: Reports: weakness HEENT: Denies: no symptoms, eye pain, blurred vision, tearing, double vision, ear pain, ear discharge, nose pain, nose congestion, throat pain, throat swelling, mouth pain, mouth swelling, other Genitourinary: Denies: no symptoms, burning, discharge, frequency, flank pain, hematuria, incontinence, pain, urgency, other Subjective abd pain better Cr stable Objective Objective Last 24 Hour Vital Signs Date Time Temp Pulse Resp B/P (MAP) Pulse Ox O2 Delivery O2 Flow Rate FiO2 03/22/20 08:00 Room Air 03/22/20 08:00 97.9 94 19 132/85 (101) 98 03/22/20 07:35 93 03/22/20 05:15 98.5 03/22/20 04:00 98.4 99 20 141/88 (105) 99 03/22/20 04:00 Room Air 03/22/20 04:00 96 03/22/20 00:00 95 03/22/20 00:00 Room Air 03/22/20 00:00 98.7 95 20 139/79 (99) 98 03/21/20 20:00 Room Air 03/21/20 20:00 94 03/21/20 20:00 98.0 90 20 143/88 (106) 98 03/21/20 16:44 98.6 03/21/20 16:00 Room Air 03/21/20 16:00 98.2 99 20 135/81 (99) 99 03/21/20 15:22 94 03/21/20 12:00 98.6 104 20 150/80 (103) 98 03/21/20 12:00 Room Air 03/21/20 11:53 107 Intake and Output 03/21/20 03/22/20 19:00 07:00 Intake Total 1475 ml 1070 ml Output Total 770 ml 900 ml Balance 705 ml 170 ml Intake Oral 985 ml IV Total 490 ml 1070 ml Output Urine Total 770 ml 900 ml Laboratory Tests 03/21/20 11:26: POC Whole Blood Glucose 236H 03/21/20 16:17: POC Whole Blood Glucose 179H 03/21/20 18:04: POC Whole Blood Glucose 184H 03/21/20 21:00: POC Whole Blood Glucose [Pending] 03/22/20 04:55: White Blood Count 9.1, Red Blood Count 3.48L, Hemoglobin 8.9L, Hematocrit 29.0L, Mean Corpuscular Volume 83, Mean Corpuscular Hemoglobin 25.5L, Mean Corpuscular Hemoglobin Concent 30.6L, Red Cell Distribution Width 13.2, Platelet Count 279, Mean Platelet Volume 6.0L, Neutrophils (%) (Auto) , Lymphocytes (%) (Auto) , Monocytes (%) (Auto) , Eosinophils (%) (Auto) , Basophils (%) (Auto) , Differential Total Cells Counted 100, Neutrophils % (Manual) 75, Lymphocytes % (Manual) 17L, Monocytes % (Manual) 7, Eosinophils % (Manual) 0, Basophils % (Manual) 1, Band Neutrophils 0, Platelet Estimate Adequate, Platelet Morphology Normal, Hypochromasia 1+, Sodium Level 135L, Potassium Level 3.3L, Chloride Level 103, Carbon Dioxide Level 20L, Anion Gap 12, Blood Urea Nitrogen 33H, Creatinine 2.2H, Estimat Glomerular Filtration Rate 37.6, Glucose Level 142H, Calcium Level 8.0L, Magnesium Level 2.2, Total Bilirubin 0.5, Aspartate Amino Transf (AST/SGOT) 20, Alanine Aminotransferase (ALT/SGPT) 19, Alkaline Phosphatase 104, Total Protein 6.7, Albumin 1.8L, Globulin 4.9, Albumin/Globulin Ratio 0.4L, Carcinoembryonic Antigen [Pending], Vitamin B12 Level 1131H, Folate 19.0, Thyroid Stimulating Hormone (TSH) 2.414 03/22/20 06:16: POC Whole Blood Glucose 134H Height (Feet): 5 Height (Inches): 10.00 Weight (Pounds): 214 Pirouz,Aslan M.D. Mar 22, 2020 10:26
[2020-03-22] MEDS: Docusate 100mg cap ORAL SCH ×2 (11:29→17:15)
[2020-03-22] MEDS: Heparin 5000 units/ml inj SUBQ SCH (11:33)
[2020-03-22] MEDS: Levemir Flexpen SUBQ SCH (11:50)
[2020-03-22 12:00] VITALS: BP 135/84
--- NOTE | 2020-03-22 12:31 | General Progress Note ---
Subjective Constitutional: Denies: no symptoms, chills, diaphoresis, fever, malaise, weakness, other HEENT: Denies: no symptoms, eye pain, blurred vision, tearing, double vision, ear pain, ear discharge, nose pain, nose congestion, throat pain, throat swelling, mouth pain, mouth swelling, other Cardiovascular: Denies: no symptoms, chest pain, edema, irregular heart rate, lightheadedness, palpitations, syncope, other Respiratory: Denies: no symptoms, cough, orthopnea, shortness of breath, SOB with excertion, SOB at rest, sputum, stridor, wheezing, other Gastrointestinal/Abdominal: Reports: abdominal pain; Denies: no symptoms, abdomen distended, black stools, tarry stools, blood in stool, constipated, diarrhea, difficulty swallowing, nausea, poor appetite, poor fluid intake, rectal bleeding, vomiting, other Genitourinary: Denies: no symptoms, burning, discharge, frequency, flank pain, hematuria, incontinence, pain, urgency, other Neurologic/Psychiatric: Denies: no symptoms, anxiety, depressed, emotional problems, headache, numbness, paresthesia, pre-existing deficit, seizure, ti ngling, tremors, weakness, other Endocrine: Denies: no symptoms, excessive sweating, flushing, intolerance to cold, intolerance to heat, increased hunger, increased thirst, increased urine, unexplained weight gain, unexplained weight loss, other Hematologic/Lymphatic: Denies: no symptoms, anemia, easy bleeding, easy bruising, other Allergies: Coded Allergies: SULFA (SULFONAMIDE ANTIBIOTICS) (Unverified Allergy, Unknown, 02/20/20) SULFUR (Unverified Allergy, Unknown, 03/19/20) Subjective No acute events overnight. Patient continues with cyclic abdominal pain. No new complaints. No fevers. Pending EGD today. Objective Last 24 Hour Vital Signs Date Time Temp Pulse Resp B/P (MAP) Pulse Ox O2 Delivery O2 Flow Rate FiO2 03/22/20 11:30 98 127/84 03/22/20 08:00 Room Air 03/22/20 08:00 97.9 94 19 132/85 (101) 98 03/22/20 07:35 93 03/22/20 05:15 98.5 03/22/20 04:00 98.4 99 20 141/88 (105) 99 03/22/20 04:00 Room Air 03/22/20 04:00 96 03/22/20 00:00 95 03/22/20 00:00 Room Air 03/22/20 00:00 98.7 95 20 139/79 (99) 98 03/21/20 20:00 Room Air 03/21/20 20:00 94 03/21/20 20:00 98.0 90 20 143/88 (106) 98 03/21/20 16:44 98.6 03/21/20 16:00 Room Air 03/21/20 16:00 98.2 99 20 135/81 (99) 99 03/21/20 15:22 94 Intake and Output 03/21/20 03/22/20 19:00 07:00 Intake Total 1475 ml 1070 ml Output Total 770 ml 900 ml Balance 705 ml 170 ml Intake Oral 985 ml IV Total 490 ml 1070 ml Output Urine Total 770 ml 900 ml Laboratory Tests 03/21/20 16:17: POC Whole Blood Glucose 179H 03/21/20 18:04: POC Whole Blood Glucose 184H 03/21/20 21:00: POC Whole Blood Glucose [Pending] 03/22/20 04:55: White Blood Count 9.1, Red Blood Count 3.48L, Hemoglobin 8.9L, Hematocrit 29.0L, Mean Corpuscular Volume 83, Mean Corpuscular Hemoglobin 25.5L, Mean Corpuscular Hemoglobin Concent 30.6L, Red Cell Distribution Width 13.2, Platelet Count 279, Mean Platelet Volume 6.0L, Neutrophils (%) (Auto) , Lymphocytes (%) (Auto) , Monocytes (%) (Auto) , Eosinophils (%) (Auto) , Basophils (%) (Auto) , Differential Total Cells Counted 100, Neutrophils % (Manual) 75, Lymphocytes % (Manual) 17L, Monocytes % (Manual) 7, Eosinophils % (Manual) 0, Basophils % (Manual) 1, Band Neutrophils 0, Platelet Estimate Adequate, Platelet Morphology Normal, Hypochromasia 1+, Sodium Level 135L, Potassium Level 3.3L, Chloride Level 103, Carbon Dioxide Level 20L, Anion Gap 12, Blood Urea Nitrogen 33H, Creatinine 2.2H, Estimat Glomerular Filtration Rate 37.6, Glucose Level 142H, Calcium Level 8.0L, Magnesium Level 2.2, Total Bilirubin 0.5, Aspartate Amino Transf (AST/SGOT) 20, Alanine Aminotransferase (ALT/SGPT) 19, Alkaline Phosphatase 104, Total Protein 6.7, Albumin 1.8L, Globulin 4.9, Albumin/Globulin Ratio 0.4L, Carcinoembryonic Antigen [Pending], Vitamin B12 Level 1131H, Folate 19.0, Thyroid Stimulating Hormone (TSH) 2.414 03/22/20 06:16: POC Whole Blood Glucose 134H 03/22/20 11:47: POC Whole Blood Glucose 161H Height (Feet): 5 Height (Inches): 10.00 Weight (Pounds): 214 General Appearance: no apparent distress, alert, alert oriented x3 EENT: PERRL/EOMI Neck: normal alignment, normal inspection Cardiovascular: normal rate, regular rhythm, no JVD Respiratory/Chest: lungs clear, normal breath sounds, no respiratory distress Abdomen: non tender, soft, no mass Extremities: normal range of motion, non-tender Edema: no edema noted Arm (L), no edema noted Arm (R), no edema noted Leg (L), no edema noted Leg (R), no edema noted Pedal (L), no edema noted Pedal (R), no edema noted 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 A: # Hyperglycemia/HHS # Cystic abdominal pain 2/2 esophagitis versus gastroparesis versus PUD versus malignancy dyspepsia # Atypical chest pain with ACS rule outtropes negative x3 # Sepsis UTI # Acute renal failure secondary to prerenal azotemia versus sepsis ATN # History of renal transplant in 1997 on immunosuppressants # UTI # Pseudohyponatremia secondary to hyperglycemia # Diabetes Mellitus type IIuncontrolled # Nausea/Vomiting # History of DVT # Normocytic anemia secondary to anemia of chronic disease P: Pending EGD later today per GI Continue Levemir at 15 units and NovoLog 15 units Premeal Aggressive insulin sliding scale, reassessment of insulin requirements daily Blood glucose goal 140-180 A1c: > 16 Continue IVF Switch to Zyvox per IDmay need ANTONIO Urine cultures and blood cultures preliminary reading strep Restarted Prograf per nephrology Monitor renal function and electrolytes Follow-up renal ultrasound Heme-onc consult Dr. Davis, recs appreciated Gastroenterology consult Dr. Vick, recs appreciated - Endocrinology consult Dr. Tamez, recs appreciated - Cardiology consult Dr. Martinez, recs appreciated - Nephro consult Dr. Gomez, recs appreciated - ID consult Dr. Murphy, recs appreciated Diet: low carb DVT ppx: heparin subQ GI: PPI Code status: Full Dispo: Evaluation from GI for cystic abdominal pain, may need ANTONIO, pending transfer to [facility] Time spent on this encounter was 43 minutes which included 23 minutes of counseling and care coordination. I discussed with the nurse at bedside. Time of note may not reflect time patient was seen. Poli Hendricks D.O Mar 22, 2020 12:30
--- NOTE | 2020-03-22 13:25 | Diagnostic Imaging Report ---
EXAM: XR Chest, 1 View CLINICAL HISTORY: cough TECHNIQUE: Frontal view of the chest. Please note that the image was acquired on 03/20/20 but was not submitted for interpretation until 03/22/20. COMPARISON: No relevant prior studies available. FINDINGS: Lungs: Mildly increased perihilar interstitial markings. The lungs are otherwise clear without focal consolidation. Pleural space: Unremarkable. The costophrenic angles are sharp. No visible pneumothorax. Heart: Unremarkable. No cardiomegaly. Mediastinum: Unremarkable. Bones/joints: Unremarkable. IMPRESSION: Mildly increased perihilar interstitial markings. This is nonspecific and may represent a mild bronchitis or interstitial pneumonitis. No focal consolidation.
--- NOTE | 2020-03-22 13:47 | General Progress Note ---
Subjective ROS Limited/Unobtainable: Yes Allergies: Coded Allergies: SULFA (SULFONAMIDE ANTIBIOTICS) (Unverified Allergy, Unknown, 02/20/20) SULFUR (Unverified Allergy, Unknown, 03/19/20) Objective Last 24 Hour Vital Signs Date Time Temp Pulse Resp B/P (MAP) Pulse Ox O2 Delivery O2 Flow Rate FiO2 03/22/20 12:00 Room Air 03/22/20 12:00 97.0 95 19 135/84 (101) 98 03/22/20 11:30 98 127/84 03/22/20 08:00 Room Air 03/22/20 08:00 97.9 94 19 132/85 (101) 98 03/22/20 07:35 93 03/22/20 05:15 98.5 03/22/20 04:00 98.4 99 20 141/88 (105) 99 03/22/20 04:00 Room Air 03/22/20 04:00 96 03/22/20 00:00 95 03/22/20 00:00 Room Air 03/22/20 00:00 98.7 95 20 139/79 (99) 98 03/21/20 20:00 Room Air 03/21/20 20:00 94 03/21/20 20:00 98.0 90 20 143/88 (106) 98 03/21/20 16:44 98.6 03/21/20 16:00 Room Air 03/21/20 16:00 98.2 99 20 135/81 (99) 99 03/21/20 15:22 94 Intake and Output 03/21/20 03/22/20 19:00 07:00 Intake Total 1475 ml 1070 ml Output Total 770 ml 900 ml Balance 705 ml 170 ml Intake Oral 985 ml IV Total 490 ml 1070 ml Output Urine Total 770 ml 900 ml Laboratory Tests 03/21/20 16:17: POC Whole Blood Glucose 179H 03/21/20 18:04: POC Whole Blood Glucose 184H 03/21/20 21:00: POC Whole Blood Glucose [Pending] 03/22/20 04:55: White Blood Count 9.1, Red Blood Count 3.48L, Hemoglobin 8.9L, Hematocrit 29.0L, Mean Corpuscular Volume 83, Mean Corpuscular Hemoglobin 25.5L, Mean Corpuscular Hemoglobin Concent 30.6L, Red Cell Distribution Width 13.2, Platelet Count 279, Mean Platelet Volume 6.0L, Neutrophils (%) (Auto) , Lymphocytes (%) (Auto) , Monocytes (%) (Auto) , Eosinophils (%) (Auto) , Basophils (%) (Auto) , Differential Total Cells Counted 100, Neutrophils % (Manual) 75, Lymphocytes % (Manual) 17L, Monocytes % (Manual) 7, Eosinophils % (Manual) 0, Basophils % (Manual) 1, Band Neutrophils 0, Platelet Estimate Adequate, Platelet Morphology Normal, Hypochromasia 1+, Sodium Level 135L, Potassium Level 3.3L, Chloride Level 103, Carbon Dioxide Level 20L, Anion Gap 12, Blood Urea Nitrogen 33H, Creatinine 2.2H, Estimat Glomerular Filtration Rate 37.6, Glucose Level 142H, Calcium Level 8.0L, Magnesium Level 2.2, Total Bilirubin 0.5, Aspartate Amino Transf (AST/SGOT) 20, Alanine Aminotransferase (ALT/SGPT) 19, Alkaline Phosphatase 104, Total Protein 6.7, Albumin 1.8L, Globulin 4.9, Albumin/Globulin Ratio 0.4L, Carcinoembryonic Antigen [Pending], Vitamin B12 Level 1131H, Folate 19.0, Thyroid Stimulating Hormone (TSH) 2.414 03/22/20 06:16: POC Whole Blood Glucose 134H 03/22/20 11:47: POC Whole Blood Glucose 161H Height (Feet): 5 Height (Inches): 10.00 Weight (Pounds): 214 General Appearance: alert EENT: normal ENT inspection Neck: supple Cardiovascular: normal rate Respiratory/Chest: decreased breath sounds Abdomen: normal bowel sounds, non tender, soft Extremities: non-tender Assessment/Plan Assessment/Plan: 1. History of diabetes. 2. History of renal transplant. 3. Hypertension. 4. History of DVT. 5. Anemia. 6. GIB EGD was canceled given patient being transferred ppi iv iron fu CEA fu H&H Jaspreet Vick MD Mar 22, 2020 13:47
[2020-03-22 16:00] VITALS: BP 132/80
--- NOTE | 2020-03-22 17:08 | Cardiac Electrophysiology PN ---
Assessment/Plan Assessment/Plan 1. Shortness of breath and lateral T-wave inversion. Ruled out for TN The patient's D-dimer is elevated. Ventilation/perfusion scan showed low pro bability for PE 2. HTN. Avoid ACEI or ARB for renal failure. On Norvasc 5 po daily and prn Clonidine Avoid beta-rowan in view of uncontrolled diabetes. 3. Hyponatremia, likely due to the patient's blood glucose of 620.On NS 70 cc/hr Na 130s now 4. Uncontrolled diabetes.On NS at 70cc/hr 5. Acute renal failure. BUN of 70 and creatinine of 4.1. Cr Improved to 2.2 DW RN Subjective Subjective Alert in NAD. No CP or SOB.On iv fluid Objective Last 24 Hour Vital Signs Date Time Temp Pulse Resp B/P (MAP) Pulse Ox O2 Delivery O2 Flow Rate FiO2 03/22/20 16:00 97.5 93 19 132/80 (97) 97 03/22/20 16:00 Room Air 03/22/20 16:00 96 03/22/20 12:00 Room Air 03/22/20 12:00 97.0 95 19 135/84 (101) 98 03/22/20 12:00 91 03/22/20 11:30 98 127/84 03/22/20 08:00 Room Air 03/22/20 08:00 97.9 94 19 132/85 (101) 98 03/22/20 07:35 93 03/22/20 05:15 98.5 03/22/20 04:00 98.4 99 20 141/88 (105) 99 03/22/20 04:00 Room Air 03/22/20 04:00 96 03/22/20 00:00 95 03/22/20 00:00 Room Air 03/22/20 00:00 98.7 95 20 139/79 (99) 98 03/21/20 20:00 Room Air 03/21/20 20:00 94 03/21/20 20:00 98.0 90 20 143/88 (106) 98 Intake and Output 03/21/20 03/22/20 19:00 07:00 Intake Total 1475 ml 1070 ml Output Total 770 ml 900 ml Balance 705 ml 170 ml Intake Oral 985 ml IV Total 490 ml 1070 ml Output Urine Total 770 ml 900 ml Laboratory Tests Test 03/21/20 18:04 03/21/20 21:00 03/22/20 04:55 03/22/20 06:16 POC Whole Blood Glucose 184 MG/DL (74-106) H Pending 134 MG/DL (74-106) H White Blood Count 9.1 K/UL (4.8-10.8) Red Blood Count 3.48 M/UL (4.70-6.10) L Hemoglobin 8.9 G/DL (14.2-18.0) L Hematocrit 29.0 % (42.0-52.0) L Mean Corpuscular Volume 83 FL (80-99) Mean Corpuscular Hemoglobin 25.5 PG (27.0-31.0) L Mean Corpuscular Hemoglobin Concent 30.6 G/DL (32.0-36.0) L Red Cell Distribution Width 13.2 % (11.6-14.8) Platelet Count 279 K/UL (150-450) Mean Platelet Volume 6.0 FL (6.5-10.1) L Neutrophils (%) (Auto) % (45.0-75.0) Lymphocytes (%) (Auto) % (20.0-45.0) Monocytes (%) (Auto) % (1.0-10.0) Eosinophils (%) (Auto) % (0.0-3.0) Basophils (%) (Auto) % (0.0-2.0) Differential Total Cells Counted 100 Neutrophils % (Manual) 75 % (45-75) Lymphocytes % (Manual) 17 % (20-45) L Monocytes % (Manual) 7 % (1-10) Eosinophils % (Manual) 0 % (0-3) Basophils % (Manual) 1 % (0-2) Band Neutrophils 0 % (0-8) Platelet Estimate Adequate Platelet Morphology Normal Hypochromasia 1+ Sodium Level 135 MMOL/L (136-145) L Potassium Level 3.3 MMOL/L (3.5-5.1) L Chloride Level 103 MMOL/L (98-107) Carbon Dioxide Level 20 MMOL/L (21-32) L Anion Gap 12 mmol/L (5-15) Blood Urea Nitrogen 33 mg/dL (7-18) H Creatinine 2.2 MG/DL (0.55-1.30) H Estimat Glomerular Filtration Rate 37.6 mL/min (>60) Glucose Level 142 MG/DL (74-106) H Calcium Level 8.0 MG/DL (8.5-10.1) L Magnesium Level 2.2 MG/DL (1.8-2.4) Total Bilirubin 0.5 MG/DL (0.2-1.0) Aspartate Amino Transf (AST/SGOT) 20 U/L (15-37) Alanine Aminotransferase (ALT/SGPT) 19 U/L (12-78) Alkaline Phosphatase 104 U/L (46-116) Total Protein 6.7 G/DL (6.4-8.2) Albumin 1.8 G/DL (3.4-5.0) L Globulin 4.9 g/dL Albumin/Globulin Ratio 0.4 (1.0-2.7) L Carcinoembryonic Antigen Pending Vitamin B12 Level 1131 PG/ML (193-986) H Folate 19.0 NG/ML (8.6-58.9) Thyroid Stimulating Hormone (TSH) 2.414 uiU/mL (0.358-3.740) Test 03/22/20 11:47 03/22/20 16:08 POC Whole Blood Glucose 161 MG/DL (74-106) H 170 MG/DL (74-106) H Microbiology Date/Time Source Procedure Growth Status 03/21/20 14:30 Nasopharynx SARS-CoV-2 RdRp Gene Assay - Final Complete Objective HEAD AND NECK: no JVD. LUNGS: Decreased breath sounds. CARDIOVASCULAR: regular S1 and S2 with no gallop. ABDOMEN: Soft. EXTREMITIES: No pitting edema. Ivan Martinez MD Mar 22, 2020 17:08
[2020-03-22] MEDS ORDERED: Tubing IV Secondary IV ONE (19:44)
--- NOTE | 2020-03-23 11:45 | Discharge Summary ---
Discharge Summary Hospital Course Date of Admission Mar 19, 2020 at 14:07 Date of Discharge Mar 22, 2020 at 19:45 Admitting Diagnosis DKA/CP HPI Oliver Hinton is a 55 year old male who was admitted on Mar 19, 2020 at 14:07 for Diabetic Ketoacidosis,Chest Pain Hospital Course Oliver Hinton is a 55 yo M with PMH of Kidney transplant, HTN, DM, Hx of DVT who presents with chest pain, abdominal pain, N/V and found to have marked hyperglycemia. Patient initially found to be in HHS and admitted to stepdown unit. His sugars were controlled with insulin and fluids. His atypical chest pain was ruled out with troponins negative x3 and seen by cardiology. He was also found to have strep bacteremia and UTI, in which Zyvox was started by ID. 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 He was noted to have a DAHIANA on admission and was seen by [facility] hrology. He also complained of cystic abdominal pain over the last week, CT of the thorax showed possible esophagitis versus a malignancy. Patient was to have an EGD by GI for further evaluation. However patient is normally managed at [facility] in which they reached out to me to have patient transfer back to their hospital for further care. Therefore EGD was canceled by GI. Patient otherwise remained hemodynamically stable with no respiratory compromise. He was stable for transfer back to [facility] to have continued care management for his abdominal pain, bacteremia, renal failure. A: # Hyperglycemia/HHS # Cystic abdominal pain 2/2 esophagitis versus gastroparesis versus PUD versus malignancy dyspepsia # Atypical chest pain with ACS rule outtropes negative x3 # Sepsis UTI # Acute renal failure secondary to prerenal azotemia versus sepsis ATN # History of renal transplant in 1997 on immunosuppressants # UTI # Pseudohyponatremia secondary to hyperglycemia # Diabetes Mellitus type IIuncontrolled # Nausea/Vomiting # History of DVT # Normocytic anemia secondary to anemia of chronic disease P: Pending EGD later today per GI Continue Levemir at 15 units and NovoLog 15 units Premeal Aggressive insulin sliding scale, reassessment of insulin requirements daily Blood glucose goal 140-180 A1c: > 16 Continue IVF Switch to Zyvox per IDmay need ANTONIO Urine cultures and blood cultures preliminary reading strep Restarted Prograf per nephrology Monitor renal function and electrolytes Follow-up renal ultrasound Heme-onc consult Dr. Davis, recs appreciated Gastroenterology consult Dr. Vick, recs appreciated - Endocrinology consult Dr. Tamez, recs appreciated - Cardiology consult Dr. Martinez, recs appreciated - Nephro consult Dr. Gomez, recs appreciated - ID consult Dr. Murphy, recs appreciated Diet: low carb DVT ppx: heparin subQ GI: PPI Code status: Full Dispo: Patient was transferred back to [facility] in stable condition Time spent on this encounter was 43 minutes which included 23 minutes of counseling and care coordination. I discussed with the nurse at bedside. Time of note may not reflect time patient was seen. Discharge Discharge Vital Signs Last Vital Signs Date Time Temp Pulse Resp B/P (MAP) Pulse Ox O2 Delivery O2 Flow Rate FiO2 03/22/20 16:00 97.5 93 19 132/80 (97) 97 03/22/20 16:00 Room Air Discharge Disposition Patient was discharged to Poli Hendricks D.O Mar 23, 2020 11:45
--- NOTE | 2020-03-23 16:50 | Cardiology Report ---
APPROVED REPORT EKG Measurement Heart [id number] [place] 158P [id number] <Conclusion> Sinus tachycardia Cannot rule out Anterior infarct, age undetermined Abnormal ECG
--- NOTE | 2020-03-23 20:34 | Diagnostic Imaging Report ---
EXAM: US Renal CLINICAL HISTORY: RENAL-C TECHNIQUE: Real-time limited ultrasound of the retroperitoneum with image documentation. COMPARISON: No relevant prior studies available. FINDINGS: Right kidney: The augustine kidneys are echogenic, consistent with chronic medical renal disease. No stones. No hydronephrosis. Left kidney: See above. Transplant kidney: There is a transplant kidney the right iliac fossa which demonstrates normal echotexture with good corticomedullary differentiation. There is a mildly elevated peak systolic velocity of 190 cm/s involving the distal renal artery supplying the transplant kidney with a borderline increased resistive index of 0.76. The interlobular artery peak systolic velocities and resistive indices are within normal limits. 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 The renal transplant otherwise has a normal sonographic appearance without hydronephrosis or nephrolithiasis.
== END 2020-03-22 19:45 | DRG 871 ==
LOC: EDBD 12:10 → EDBEDREQ 12:23 → EMR 12:40 → EDBEDREQ 13:33 → EDBEDREQSVC 13:33 → 2W 14:07 → EDBEDREQ 15:23
DX: A41.9 Sepsis, unspecified organism (principal); E11.00 Type 2 diabetes mellitus with hyperosmolarity without nonketotic hyperglycemic-hyperosmolar coma (NKHHC); N17.0 Acute kidney failure with tubular necrosis; N39.0 Urinary tract infection, site not specified; E87.1 Hypo-osmolality and hyponatremia; Z94.0 Kidney transplant status; Z88.2 Allergy status to sulfonamides; E11.65 Type 2 diabetes mellitus with hyperglycemia; Z86.718 Personal history of other venous thrombosis and embolism; E86.0 Dehydration; R07.89 Other chest pain; R10.9 Unspecified abdominal pain; D63.8 Anemia in other chronic diseases classified elsewhere; N18.9 Chronic kidney disease, unspecified; D50.9 Iron deficiency anemia, unspecified; E11.22 Type 2 diabetes mellitus with diabetic chronic kidney disease; Z91.14 Patient's other noncompliance with medication regimen
CPT/HCPCS: 36415; 71045; 74176; 76770; 78579; 78580; 80048; 80053; 80061; 80197; 81003; 82009; 82378; 82607; 82728; 82746; 82803; 82962; 83036; 83540; 83550; 83605; 83735; 83880; 84100; 84443; 84484; 85007; 85025; 85379; 85610; 85730; 87040; 87086; 87181; 93005; 93306; 93970; 96361; 96365; 96368; 96375; 99291; A9503; J1815; J7030; S5561; U0002